=== PATIENT | female | born 1935 | race Two or more races ===

== ENCOUNTER 2019-05-21 13:01 | Inpatient (IN) | payer MEDICARE, MEDICAID ==
[~2019-05-21] VITALS: Ht 149.9 cm; Wt 38.1 kg
[2019-05-21] VITALS (9 sets, daily range): BP systolic 147–157; BP diastolic 76–94
--- NOTE | 2019-05-21 13:20 | NUR ---
PT ANGELA FROM HOME, C/O WEAKNESS, SENT BY PMD FOR LOW HGB. PT AAOX1, BREATHING EVENLY ON THE MONITOR, AMBULATING W WALKER. PT CHANGED INTO GOWN AND CONNECTED TO THE MONITOR,
[2019-05-21 14:13] LABS: BASOPHILS % (AUTO) 0.1 % (0.0-2.0); EOSINOPHILS % (AUTO) 0.7 % (0.0-6.0); LYMPHOCYTES # (AUTO) 3.2 /CMM (0.8-4.8); LYMPHOCYTES % (AUTO) 47.7 % (20.0-44.0); MEAN CORPUSCULAR HGB CONC 35 g/dl (31.0-36.0); MEAN CORPUSCULAR VOLUME 99 fL (82-100); MONOCYTES % (AUTO) 15.5 % (2.0-12.0); NEUTROPHILS # (AUTO) 2.4 /CMM (1.8-8.9); PLATELET COUNT (AUTO) 142 /CMM (150-450); WHITE BLOOD COUNT (AUTO) 6.7 K/uL (4.3-11.0)
[2019-05-21 14:30] LABS: APPEARANCE,URINE Clear (CLEAR); BILIRUBIN,URINE Negative (NEGATIVE); BLOOD, URINE Moderate Ery/uL (NEGATIVE); COLOR,URINE Yellow (YELLOW); KETONES,URINE Negative (NEGATIVE); LEUKOCYTE ESTERASE ,URINE Trace (NEGATIVE); NITRITE, URINE Negative (NEGATIVE); PROTEIN,URINE 100 mg/dl (NEGATIVE); UGLUCOSE Negative (NEGATIVE); UROBILINOGEN,URINE 0.2 EU/dL (0.2)
[2019-05-21] MEDS ORDERED: IV NS 0.9% 500 ML BAG IV ONE (14:30)
[2019-05-21 14:35] LABS: RED BLOOD CELL COUNT(AUTO) 1.84 MIL/uL (4.0-5.2)
[2019-05-21 14:36] LABS: HEMOGLOBIN 6.4 g/dL (11.5-14.8)
[2019-05-21 14:37] LABS: HEMATOCRIT 18 % (33-45)
[2019-05-21 14:39] LABS: ALANINE AMINOTRANSFERASE 29 U/L (12-78); ALBUMIN 2.3 g/dL (3.4-5.0); ALKALINE PHOSPHATASE 70 U/L (46-116); ASPARTATE AMINOTRANSFERASE 53 U/L (15-37); BILIRUBIN,DIRECT 0.1 mg/dL (0.0-0.2); BILIRUBIN,TOTAL 0.2 mg/dL (0.2-1.0); CALCIUM, SERUM 12.9 mg/dL (8.5-10.1); CARBON DIOXIDE 26 mmol/L (21-32); CHLORIDE 100 mmol/L (98-107); GLUCOSE 109 mg/dL (74-106); LIPASE 268 U/L (73-393); POTASSIUM 2.9 mmol/L (3.5-5.1); SODIUM SERUM 130 mmol/L (136-145); TOTAL PROTEIN, SERUM 13.1 g/dL (6.4-8.2); UREA NITROGEN, BLOOD 38 mg/dL (7-18)
[2019-05-21 14:46] LABS: BACTERIA,URINE None seen /HPF (None Seen); SQUAMOUS EPITHELIAL CELL,UR Few /HPF (None Seen); WBC,URINE 0-2 /HPF (0-3)
--- NOTE | 2019-05-21 14:54 | NUR ---
CALLED [facility]. SUPPLY CHAIN LOGISTICS MANAGER WAS PAGED.
[2019-05-21] MEDS ORDERED: PANTOPRAZOLE 40 MG VIAL ONE (14:59)
[2019-05-21] MEDS ORDERED: POTASSIUM CHLORIDE 20 MEQ TAB.PRT.SR PO ONE ×2 (14:59→15:00)
[2019-05-21] MEDS ORDERED: IV NS 0.9% 1,000 ML BAG IV ONE (15:00)
[2019-05-21] MEDS ORDERED: PANTOPRAZOLE 80 MG in IV NS 0.9% 500 ML IV ONE (15:00)
[2019-05-21] MEDS ORDERED: ATEN25TA PO (15:07)
[2019-05-21] MEDS ORDERED: LOSA50TA39 PO (15:07)
[2019-05-21] MEDS ORDERED: ONDA4TAB5 PO (15:08)
[2019-05-21 15:12] LABS: IRON, SERUM 168 ug/dl (50-175); TOTAL IRON BINDING CAPACITY 122 ug/dl (250-450)
[2019-05-21 15:18] LABS: MONOCYTES % (MANUAL) 15 % (0-11.0); NEUTROPHILS % (MANUAL) 40 (42-76)
[2019-05-21 15:21] LABS: LYMPHOCYTES % (MANUAL) 40 % (16-48); REACTIVE LYMPHOCYTES 5 % (0-0)
[2019-05-21 15:23] LABS: FERRITIN 585 ng/mL (8-388)
--- NOTE | 2019-05-21 15:30 | NUR ---
CALLED HOUSE SUP FOR TELE BED
--- NOTE | 2019-05-21 15:42 | NUR ---
PT GIVEN PROTONIX IVP LAC 18G PER DR. PT TOLERATED K+ TABLETS.
--- NOTE | 2019-05-21 16:07 | NUR ---
REPORT GIVEN TO BC JASMINE
--- NOTE | 2019-05-21 16:41 | NUR ---
PATIENT A/OX2-3 NO DISTRESS NOTED, TRANSFERRED TO ROOM 120-1 VIA ACLS PROTOCOL.
[2019-05-21] MEDS ORDERED: Z GUARD REMEDY 2 OZ OINT TP PRN (17:00)
[2019-05-21] MEDS ORDERED: MAG HYDROX/AL HYDROX/SIMETH 30 ML UDC PO PRN (17:00)
[2019-05-21] MEDS ORDERED: ACETAMINOPHEN 325 MG TABLET PO PRN (17:00)
[2019-05-21] MEDS ORDERED: MAGNESIUM HYDROXIDE 30 ML UDC PO PRN (17:00)
[2019-05-21] MEDS ORDERED: HYDROCODONE/APAP 5/325MG 1 EACH TABLET PO PRN (17:00)
--- NOTE | 2019-05-21 17:10 | NUR ---
RN OPENING NOTES PATIENT PRESENTED TO THE UNIT VIA GURNEY FROM THE ED. SHE IS AOX2, VERBAL, AND AMBULATORY WITH ASSIST. EYES ARE PERRLA. LUNGS SOUNDS CLEAR BILATERALLY, EVEN RISE AND FALL, NO COMPLAINT OF SOB. SKIN IS INTACT, NO WOUNDS NOTED UPON ASSESSMENT. SHE DENIES ANY PAIN OR DISCOMFORT AT THIS TIME. SON IS AT BEDSIDE. SHE AMBULATES WELL WITH WALKER. HEENT NORMAL. SAFETY MEASURES HAVE BEEN IMPLEMENTED, CALL LIGHT IS WITHIN REACH, BED IS IN LOWEST AND LOCKED POSITION, SIDE RAILS UP X2, WILL CONTINUE TO MONITOR FOR ANY CHANGES.
--- NOTE | 2019-05-21 19:00 | NUR ---
BLOOD TRANSFUSION OF ONE UNIT pRBC HAS STARTED, VITAL SIGNS ARE STABLE. WILL CONTINUE TO MONITOR
--- NOTE | 2019-05-21 19:15 | NUR ---
NO ADVERSE REACTION HAS OCCURRED AFTER INITIAL 15 MIN. NO SIGNIFICANT CHANGE IN VITAL SIGNS. PATIENT REPORTED NO ITCHINESS, SOB, OR FLANK PAIN.
--- NOTE | 2019-05-21 19:17 | NUR ---
RN CLOSING NOTES] PATIENT IS RESTING IN BED COMFORTABLY AT THIS TIME. SHE IS CURRENTLY RECEIVING ONE UNIT OF PACKED RBCS, NO ADVERSE REACTIONS NOTED AFTER INITIAL 15 MIN. PATIENT DENIES ANY PAIN OR DISCOMFORT AT THIS TIME. SAFETY MEASURES HAVE BEEN IMPLEMENTED, CALL LIGHT IS WITHIN REACH, BED IS IN LOWEST AND LOCKED POSITION, SIDE RAILS UP X2, PT HAS BEEN ENDORSED TO NIGHTSHIFT RN FOR CONTINUITY OF CARE.
--- NOTE | 2019-05-21 19:45 | NUR ---
URBAN REDEVELOPMENT SPECIALIST NOTES RECEIVED PT ON BED. ON TELE MONITOR SR. ON ROOM AIR NO RESPIRATORY DISTRESS NOTED. IV ACCESS ON LAC G18 WITH ONGOING BLOOD TRANSFUSION RUNNING @ 120CC/HR. HEAD OF BED ELEVATED. SIDE RAILS UP. CALL LIGHT WITHIN REACH. BED ALARM ON. BED IN LOW AND LOCKED POSITION. WILL MONITOR PT CLOSELY.
[2019-05-21] MEDS: CEFTRIAXONE 1 G in IV D5W 50 ML IV SCH ×2 (20:45→21:27)
[2019-05-21] MEDS: IV NS 0.9% 1,000 ML IV PRN (20:47)
--- NOTE | 2019-05-21 21:05 | NUR ---
MARINE PIPEFITTER HELPER NOTES PER CARLOS VALENTE TO GIVE ONE MORE UNIT OF PRBC. AND REPLACED POTASSIUM WITH 2 BAGS.
[2019-05-21] MEDS: POTASSIUM CL. PREMIX PERIPHER. 50 ML IV SCH ×2 (22:00→22:52)
--- NOTE | 2019-05-21 23:18 | NUR ---
AS400 OPERATOR NOTES BED ALARM ON. SIDE RAILS UP X3. BED IN LOW AND LOCKED POSITION. PT FALL RISK, WILL CONT CLOSE MONITORING.
--- NOTE | 2019-05-21 23:39 | NUR ---
CHECKER [employer] NOTES PT CONFUSED TRYING TO GET OUT OF BED. CALLED DAUGHTER. PER DAUGHTER BROTHER IS COMING. SIDE RAILS UP X3. BED IN LOW AND LOCKED POSITION. BED ALARM ON. CLOSE MONITORING ON GOING.
[2019-05-22] VITALS (7 sets, daily range): BP systolic 90–167; BP diastolic 57–89
--- NOTE | 2019-05-22 00:39 | NUR ---
SOIL FIELD TECHNICIAN NOTES BLOOD TRANSFUSION DONE. NO SIGNS OF RESPIRATORY DISTRESS OR ANY SIGN AND SYMPTOMS OF REACTION. WILL MONITOR PT CLOSELY.
--- NOTE | 2019-05-22 07:16 | NUR ---
NETWORK ARCHITECT NOTES NO ACUTE CHANGES NOTE DURING THE SHIFT. PT CONFUSE AND TRYING TO GET OUT OF BED. NO RESPIRATORY DISTRESS NOTED. NO ACTIVE BLEEDING NOTED. WILL ENDORSE TO THE AM NURSE FOR CONTINUITY OF CARE.
[2019-05-22 07:24] LABS: BASOPHILS % (AUTO) 0.2 % (0.0-2.0); EOSINOPHILS % (AUTO) 0.6 % (0.0-6.0); HEMATOCRIT 27 % (33-45); HEMOGLOBIN 9.6 g/dL (11.5-14.8); LYMPHOCYTES % (AUTO) 39.2 % (20.0-44.0); MEAN CORPUSCULAR HGB CONC 35 g/dl (31.0-36.0); MEAN CORPUSCULAR VOLUME 92 fL (82-100); MONOCYTES # (AUTO) 1.4 /CMM (0.1-1.30); MONOCYTES % (AUTO) 18.1 % (2.0-12.0); NEUTROPHILS # (AUTO) 3.2 /CMM (1.8-8.9); NEUTROPHILS % (AUTO) 41.9 % (43.0-81.0); PLATELET COUNT (AUTO) 127 /CMM (150-450); RED BLOOD CELL COUNT(AUTO) 2.98 MIL/uL (4.0-5.2); WHITE BLOOD COUNT (AUTO) 7.6 K/uL (4.3-11.0)
[2019-05-22 07:40] LABS: CALCIUM, SERUM 12.4 mg/dL (8.5-10.1); CARBON DIOXIDE 26 mmol/L (21-32); CHLORIDE 107 mmol/L (98-107); CREATININE 1.8 mg/dL (0.6-1.3); GLUCOSE 83 mg/dL (74-106); MAGNESIUM 1.5 mg/dL (1.8-2.4); PHOSPHORUS 2.7 mg/dL (2.5-4.9); POTASSIUM 3.3 mmol/L (3.5-5.1); SODIUM SERUM 136 mmol/L (136-145); UREA NITROGEN, BLOOD 33 mg/dL (7-18)
--- NOTE | 2019-05-22 07:53 | NUR ---
MARINA PORTER NOTES RECEIVED PT ON BED. ON TELE MONITOR SR. ON ROOM AIR NO RESPIRATORY DISTRESS NOTED. IV ACCESS ON LAC G18 WITH ONGOING IVF AT 75 ML PER HOUR ON RT HAND,. HEAD OF BED ELEVATED. SIDE RAILS UP. CALL LIGHT WITHIN REACH. BED ALARM ON. BED IN LOW AND LOCKED POSITION. WILL MONITOR PT CLOSELY ,BED ALARM IN PLACE
[2019-05-22] MEDS: PANTOPRAZOLE 40 MG VIAL IV SCH (09:07)
[2019-05-22] MEDS: ATENOLOL 25 MG TABLET PO SCH (09:07)
--- NOTE | 2019-05-22 09:20 | NUR ---
VISUAL DESIGNER NOTE DR HYDE AND DR GUZMAN GI AT BEDSIDE ,UA COLLECTED AND STOOL FOR OB COLLECTED
[2019-05-22 09:25] LABS: EOSINOPHILS % (MANUAL) 2 % (0-4); LYMPHOCYTES % (MANUAL) 44 % (16-48); MONOCYTES % (MANUAL) 11 % (0-11.0); MYELOCYTES % 1 % (0-0); NEUTROPHILS % (MANUAL) 42 (42-76)
[2019-05-22] MEDS ORDERED: POTASSIUM CHLORIDE 20 MEQ POWDER PACKET PO SCH (10:00)
[2019-05-22] MEDS ORDERED: Magnesium 1GM/D5W 100ML PREMIX 100 ML IV SCH (10:54)
--- NOTE | 2019-05-22 12:00 | NUR ---
REMOTE SENSING ANALYST NOTE HAVING LUNCH , FAMILY AT BEDSIDE
[2019-05-22 12:01] LABS: OCCULT BLOOD STOOL NEGATIVE (NEGATIVE)
[2019-05-22] MEDS ORDERED: POTASSIUM CHLORIDE 20 MEQ TAB.PRT.SR PO ONE (12:30)
[2019-05-22] MEDS: IV NS 0.9% 1,000 ML IV PRN ×2 (13:43→21:28)
--- NOTE | 2019-05-22 13:50 | NUR ---
FLEET DIRECTOR NOTE RENAL US DONE ORDERED
--- NOTE | 2019-05-22 15:49 | NUR ---
SEXOLOGIST NOTE ASSISTED TO BR , ABLE TO URINATE WELL ,KEEP CLEAN DRY ,CALL LIGHT WITHIN REACH
--- NOTE | 2019-05-22 18:25 | NUR ---
PERMIT COORDINATOR NOTE DAUGHTER AT BEDSIDE ,ASSISTED TO BR , ABLE TO URINATE WELL AND NOW HAVING DINNER , ALL NEEDS ATTENDED,CONT ON IVF ORDERED , BED IN LOWEST AND LOCKED POSITION, BED ALARM IN PLACE ,WILL MONITOR
[2019-05-22] MEDS: CEFTRIAXONE 1 G in IV D5W 50 ML IV SCH (21:28)
[2019-05-23] VITALS (8 sets, daily range): BP systolic 144–166; BP diastolic 60–82
--- NOTE | 2019-05-23 02:00 | NUR ---
ENDORSED REPORT TO SHANEL Sweeney RN FOR CONTINUITY OF CARE.
--- NOTE | 2019-05-23 02:45 | NUR ---
PATIENT TRANSPORTED TO IN NO ACUTE DISTRESS IN BED. PATIENT TOLERATED TRANSPORT WELL. PATIENT CARE TRANSFERRED TO SHANEL YANCEY FOR CONTINUITY OF CARE. SITTER AT BEDSIDE.
--- NOTE | 2019-05-23 02:50 | NUR ---
0250 PATIENT'S SON NICKI AT BEDSIDE AND UPDATED ON PATIENT CONDITION, MADE HIM AWARE ALSO THAT PATIENT WILL BE MOVED TO ROOM 327-1 AND AGREED. TRANSFERRED PATIENT TO ROOM 327-1 VIA BED ON ACLS PROTOCOL, ACCOMPANIED BY SON AND SITTER. NO DISTRESS NOTED.
--- NOTE | 2019-05-23 02:55 | NUR ---
RN NOTES RECEIVED PATIENT TRANSFER FROM [facility], ACCOMPANIED BY STEVEN ROSS AND BC BOWEN, NO APPARENT SIGNS OF DISTRESS, ALL NEEDS ATTENDED IV ACCESS INTACT AND PATENT, REPOSITIONED FOR COMFORT, WILL MONITOR ACCORDINGLY.
[2019-05-23 06:48] LABS: BASOPHILS % (AUTO) 0.3 % (0.0-2.0); EOSINOPHILS % (AUTO) 1.1 % (0.0-6.0); HEMATOCRIT 26 % (33-45); LYMPHOCYTES % (AUTO) 38.9 % (20.0-44.0); MEAN CORPUSCULAR HGB CONC 35 g/dl (31.0-36.0); MEAN CORPUSCULAR VOLUME 92 fL (82-100); MONOCYTES # (AUTO) 0.6 /CMM (0.1-1.30); MONOCYTES % (AUTO) 11.2 % (2.0-12.0); NEUTROPHILS # (AUTO) 2.5 /CMM (1.8-8.9); NEUTROPHILS % (AUTO) 48.5 % (43.0-81.0); PLATELET COUNT (AUTO) 104 /CMM (150-450); RED BLOOD CELL COUNT(AUTO) 2.81 MIL/uL (4.0-5.2); WHITE BLOOD COUNT (AUTO) 5.2 K/uL (4.3-11.0)
--- NOTE | 2019-05-23 06:53 | NUR ---
RN NOTES ALL NEEDS ATTENDED AND MET, SITTER AT BEDSIDE, NO SIGNS OF DISTRESS ABLE TO REST AND SLEPT AT INTERVALS, SAFETY PRECAUTION IN PLACE, WILL ENDORSE TO AM NURSE FOR CONTINUITY OF CARE. CALLED AND SPOKE TO BRUCE OF LAB, NO URINE SPECIMEN YET, WILL ENDORSE TO AM NURSE FOR CONTINUITY OF CARE.
[2019-05-23 07:09] LABS: ALANINE AMINOTRANSFERASE 24 U/L (12-78); ALBUMIN 2.1 g/dL (3.4-5.0); ALKALINE PHOSPHATASE 68 U/L (46-116); ASPARTATE AMINOTRANSFERASE 79 U/L (15-37); BILIRUBIN,TOTAL 0.3 mg/dL (0.2-1.0); CARBON DIOXIDE 23 mmol/L (21-32); CHLORIDE 108 mmol/L (98-107); CREATININE 1.6 mg/dL (0.6-1.3); GLUCOSE 88 mg/dL (74-106); MAGNESIUM 1.5 mg/dL (1.8-2.4); PHOSPHORUS 2.6 mg/dL (2.5-4.9); POTASSIUM 2.9 mmol/L (3.5-5.1); SODIUM SERUM 136 mmol/L (136-145); TOTAL PROTEIN, SERUM 11.8 g/dL (6.4-8.2); UREA NITROGEN, BLOOD 22 mg/dL (7-18)
[2019-05-23 07:11] LABS: CREATINE KINASE, TOTAL 366 U/L (26-192)
--- NOTE | 2019-05-23 07:45 | NUR ---
FACILITIES PROJECT MANAGER NOTES PATIENT RESTING IN BED, SITTER AT BEDSIDE. PATIENT IN NO RESPIRATORY DISTRESS, NO S/S OF PAIN AT THIS TIME. SKIN WARM TO TOUCH. IV NS INFUSING AT 75ML/HR ON THE RFA #20G, INTACT AND PATENT, NO REDNESS, NO INFILTRATION. PATIENT'S NEEDS ATTENDED. BED ON LOWEST LOCKED POSITION, CALL LIGHT WITHIN REACH. WILL CONTINUE TO MONITOR.
--- NOTE | 2019-05-23 08:15 | NUR ---
ATHLETIC TRAINER NOTES PATIENT'S SECTION PLOTTER OPERATOR ON READING SR 86, POTASSIUM AND MAGNESIUM REPLACEMENT ORDERED PER MD, CARRIED OUT.
[2019-05-23] MEDS ORDERED: POTASSIUM CHLORIDE 20 MEQ TAB.PRT.SR PO ONE (08:30)
[2019-05-23] MEDS: Magnesium 1GM/D5W 100ML PREMIX 100 ML IV SCH ×2 (08:35→09:34)
[2019-05-23] MEDS: ATENOLOL 25 MG TABLET PO SCH (09:06)
[2019-05-23] MEDS: PANTOPRAZOLE 40 MG VIAL IV SCH (09:31)
[2019-05-23] MEDS ORDERED: hydrALAZINE HCL 25 MG TABLET PO PRN (11:00)
[2019-05-23] MEDS: POTASSIUM CL. PREMIX PERIPHER. 50 ML IV SCH ×4 (11:07→14:44)
[2019-05-23 11:46] LABS: CREATININE, URINE < 13.0 MG/DL (30.0-125.0); URINE SODIUM, RANDOM 115 mmol/l (40-220); URINE TOTAL PROTEIN 100.6 mg/dL (0-11.9)
[2019-05-23 12:01] LABS: APPEARANCE,URINE Clear (CLEAR); BILIRUBIN,URINE Negative (NEGATIVE); BLOOD, URINE Small Ery/uL (NEGATIVE); COLOR,URINE Yellow (YELLOW); KETONES,URINE Negative (NEGATIVE); LEUKOCYTE ESTERASE ,URINE Negative (NEGATIVE); NITRITE, URINE Negative (NEGATIVE); PROTEIN,URINE 30 mg/dl (NEGATIVE); UGLUCOSE Negative (NEGATIVE); UROBILINOGEN,URINE 0.2 EU/dL (0.2)
[2019-05-23 13:17] LABS: BACTERIA,URINE None seen /HPF (None Seen); EOSINOPHIL,URINE None Seen; RBC,URINE 0-2 /HPF (0-2); SQUAMOUS EPITHELIAL CELL,UR Few /HPF (None Seen); WBC,URINE NONE SEEN /HPF (0-3)
--- NOTE | 2019-05-23 19:33 | NUR ---
RN NOTES RECEIVED PATIENT RESTING COMFORTABLY, DAUGHTER IS AT BEDSIDE, PATIENT IN NO RESPIRATORY DISTRESS, NO S/S OF PAIN AT THIS TIME. SKIN WARM TO TOUCH. IV NS INFUSING AT 75ML/HR ON THE RFA #20G, INTACT AND PATENT, NO REDNESS, NO INFILTRATION. PATIENT'S NEEDS ANTICIPATED. BED ON LOWEST LOCKED POSITION, CALL LIGHT WITHIN REACH. WILL CONTINUE TO MONITOR ACCORDINGLY.
[2019-05-23] MEDS ORDERED: PAMIDRONATE 90 MG in IV NS 0.9% 500 ML IV ONE (20:00)
[2019-05-23] MEDS: CEFTRIAXONE 1 G in IV D5W 50 ML IV SCH (21:07)
[2019-05-24 00:09] VITALS: BP 137/79
[2019-05-24 04:36] VITALS: BP 137/79
--- NOTE | 2019-05-24 06:12 | NUR ---
RN NOTES PATIENT ABLE TO REST AND SLEPT WITH SHORT INTERVALS, IN NO RESPIRATORY DISTRESS, NO S/S OF PAIN AT THIS TIME. SKIN WARM TO TOUCH. IV NS INFUSING AT 75ML/HR ON THE RFA #20G, INTACT AND PATENT, NO REDNESS, NO INFILTRATION. PATIENT'S NEEDS ANTICIPATED. SAFETY MEASURES IN PLACE, MULTIPLE EPISODES OF GETTING OUT OF BED NOTED, BED ALARM EMPHASIZED, BED ON LOWEST LOCKED POSITION, CALL LIGHT WITHIN REACH. ROOM ASSIGNMENT IS CLOSE TO NURSING STATION, MONITORED THROUGHOUT THE SHIFT, WILL ENDORSE TO AM NURSE FOR CONTINUITY OF CARE.
[2019-05-24] MEDS: IV NS 0.9% 1,000 ML IV PRN (06:58)
--- NOTE | 2019-05-24 07:35 | NUR ---
M/S RN NOTES PATIENT RESTING, LYING IN BED. NO RESPIRATORY DISTRES NOTED. NO C/O PAIN AT THIS TIME. IV OF NS INFUSING AT 75ML/HR ON THE RFA #20G, INTACT AND PATENT, NO REDNESS, NO INFILTRATION. PATIENT'S NEEDS ATTENDED. BED ON LOWEST LOCKED POSITION, CALL LIGHT WITHIN REACH, WILL CONTINUE TO MONITOR.
[2019-05-24 07:45] LABS: BASOPHILS % (AUTO) 0.3 % (0.0-2.0); EOSINOPHILS % (AUTO) 1.2 % (0.0-6.0); HEMATOCRIT 27 % (33-45); HEMOGLOBIN 9.2 g/dL (11.5-14.8); LYMPHOCYTES # (AUTO) 2.2 /CMM (0.8-4.8); LYMPHOCYTES % (AUTO) 42.6 % (20.0-44.0); MEAN CORPUSCULAR HGB CONC 35 g/dl (31.0-36.0); MEAN CORPUSCULAR VOLUME 92 fL (82-100); MONOCYTES % (AUTO) 18.9 % (2.0-12.0); NEUTROPHILS # (AUTO) 1.9 /CMM (1.8-8.9); PLATELET COUNT (AUTO) 99 /CMM (150-450); RED BLOOD CELL COUNT(AUTO) 2.88 MIL/uL (4.0-5.2); WHITE BLOOD COUNT (AUTO) 5.1 K/uL (4.3-11.0)
[2019-05-24 07:58] LABS: CALCIUM, SERUM 12.8 mg/dL (8.5-10.1); CARBON DIOXIDE 24 mmol/L (21-32); CHLORIDE 105 mmol/L (98-107); CREATININE 1.7 mg/dL (0.6-1.3); GLUCOSE 95 mg/dL (74-106); PHOSPHORUS 2.9 mg/dL (2.5-4.9); POTASSIUM 3.5 mmol/L (3.5-5.1); SODIUM SERUM 133 mmol/L (136-145); UREA NITROGEN, BLOOD 19 mg/dL (7-18)
[2019-05-24 07:59] LABS: ALBUMIN 2.1 g/dL (3.4-5.0); BILIRUBIN,DIRECT 0.1 mg/dL (0.0-0.2); BILIRUBIN,TOTAL 0.3 mg/dL (0.2-1.0); TOTAL PROTEIN, SERUM 11.9 g/dL (6.4-8.2)
[2019-05-24 08:00] VITALS: BP 127/67
[2019-05-24 08:50] LABS: LYMPHOCYTES % (MANUAL) 51 % (16-48); MONOCYTES % (MANUAL) 11 % (0-11.0); MYELOCYTES % 1 % (0-0); NEUTROPHILS % (MANUAL) 37 (42-76)
[2019-05-24] MEDS: PANTOPRAZOLE 40 MG VIAL IV SCH (08:57)
[2019-05-24] MEDS: ATENOLOL 25 MG TABLET PO SCH (08:58)
[2019-05-24 15:50] VITALS: BP 149/86
[2019-05-24 16:00] VITALS: BP 149/86
--- NOTE | 2019-05-24 16:15 | NUR ---
M/S RN NOTES PATIENT WALKED AROUND THE UNIT WITH A WALKER WITH PATIENT'S DAUGHTERS ON EACH SIDE. PATIENT TOLERATED IT WELL.
--- NOTE | 2019-05-24 18:57 | NUR ---
M/S RN NOTES PATIENT RESTING, LYING IN BED. PATIENT IN NO RESPIRATORY DISTRESS, NO C/O PAIN AT THIS TIME. SKIN WARM TO TOUCH. IV NS INFUSING AT 75ML/HR ON THE RFA #20G, INTACT AND PATENT. PATIENT'S NEEDS ATTENDED. BED ON LOWEST LOCKED POSITION, CALL LIGHT WITHIN REACH. WILL ENDORSE TO ONCOMING NURSE.
--- NOTE | 2019-05-24 19:30 | NUR ---
CHANGE OF SHIFT REPORT Patient in bed, Tuvaluan speaking, son Yunior at bedside assist with translation. Patient appears calm, A/O x1 to self only, denies pain, tolerating RA. Fall precaution maintained.
[2019-05-24 20:00] VITALS: BP 160/79
[2019-05-24] MEDS ORDERED: PAMIDRONATE 30 MG/VIAL VIAL IV ONE (21:28)
--- NOTE | 2019-05-25 06:26 | NUR ---
END OF SHIFT REPORT Patient in bed, stable oxygen saturation on RA. IVF infusing. Slept well, no acute events overnight. Hourly rounds, ambulates with FWW, standby assist. Voiding without difficulty, no active bleeding, denies pain. Fall precaution maintained.
[2019-05-25] MEDS: IV NS 0.9% 1,000 ML IV PRN (06:49)
[2019-05-25 08:00] VITALS: BP 160/83
[2019-05-25] MEDS: ATENOLOL 25 MG TABLET PO SCH (08:47)
[2019-05-25] MEDS: PANTOPRAZOLE 40 MG VIAL IV SCH (08:47)
[2019-05-25] MEDS: IV 1/2NS 1000 ML 1,000 ML IV PRN ×2 (15:24→23:07)
[2019-05-25 15:41] LABS: BASOPHILS # (AUTO) 0.2 /CMM (0.0-0.2); EOSINOPHILS % (AUTO) 2.7 % (0.0-6.0); HEMATOCRIT 25 % (33-45); HEMOGLOBIN 8.4 g/dL (11.5-14.8); LYMPHOCYTES # (AUTO) 1.7 /CMM (0.8-4.8); LYMPHOCYTES % (AUTO) 36.6 % (20.0-44.0); MEAN CORPUSCULAR HGB CONC 34 g/dl (31.0-36.0); MEAN CORPUSCULAR VOLUME 92 fL (82-100); MONOCYTES # (AUTO) 0.7 /CMM (0.1-1.30); MONOCYTES % (AUTO) 14.3 % (2.0-12.0); NEUTROPHILS # (AUTO) 1.9 /CMM (1.8-8.9); NEUTROPHILS % (AUTO) 41.1 % (43.0-81.0); RED BLOOD CELL COUNT(AUTO) 2.67 MIL/uL (4.0-5.2); WHITE BLOOD COUNT (AUTO) 4.6 K/uL (4.3-11.0)
[2019-05-25 15:57] LABS: ALANINE AMINOTRANSFERASE 26 U/L (12-78); ALKALINE PHOSPHATASE 63 U/L (46-116); ASPARTATE AMINOTRANSFERASE 61 U/L (15-37); BILIRUBIN,TOTAL 0.3 mg/dL (0.2-1.0); CALCIUM, SERUM 11.4 mg/dL (8.5-10.1); CARBON DIOXIDE 23 mmol/L (21-32); CHLORIDE 105 mmol/L (98-107); GLUCOSE 96 mg/dL (74-106); MAGNESIUM 1.7 mg/dL (1.8-2.4); PHOSPHORUS 3.3 mg/dL (2.5-4.9); POTASSIUM 3.1 mmol/L (3.5-5.1); SODIUM SERUM 132 mmol/L (136-145); UREA NITROGEN, BLOOD 22 mg/dL (7-18)
[2019-05-25 16:00] VITALS: BP 134/72
[2019-05-25 16:10] LABS: BASOPHILS % (AUTO) 5.3 % (0.0-2.0)
[2019-05-25] MEDS ORDERED: LIDOCAINE 1% INJ 50 ML MDV IJ ONE (16:30)
[2019-05-25 19:11] LABS: EOSINOPHILS % (MANUAL) 1 % (0-4); LYMPHOCYTES % (MANUAL) 47 % (16-48); MONOCYTES % (MANUAL) 8 % (0-11.0); NEUTROPHILS % (MANUAL) 43 (42-76); REACTIVE LYMPHOCYTES 1 % (0-0)
[2019-05-25 19:12] LABS: PLATELET COUNT (AUTO) 85 /CMM (150-450)
[2019-05-25] MEDS ORDERED: POTASSIUM CHLORIDE 20 MEQ TAB.PRT.SR PO ONE (19:30)
--- NOTE | 2019-05-25 19:45 | NUR ---
MS RN OPENING NOTES RECEIVED PATIENT FROM MORNING SHIFT, ALERT AND ORIENTED X 1, UGANDAN/YI SPEAKING WITH FAMILY ON BEDSIDE. VERBALLY RESPONSIVE AND ABLE TO FOLLOW DIRECTIONS. BREATHING REGULAR AND UNLABORED ON ROOM AIR. RIGHT FOREARM G2O IV LINE INTACT AND PATENT INFUSING WELL WITH NO BLEEDING OR S/S OF INFECTION/INFILTRATION OBSERVED. ASSISTED BRP WITH WALKER WITH CLEAR YELLOW URINE. NO COMPLAINTS OF PAIN/DISCOMFORT REPORTED OF THE TIME. BED LOW AND LOCKED ON SEMI FOWLERS POSITION. WILL CONTINUE TO MONITOR.
[2019-05-25 20:00] VITALS: BP 160/75
--- NOTE | 2019-05-25 20:00 | NUR ---
MS RN NOTES MONITORED FOR S/S OF LOW POTASSIUM AND MAGNESIUM WITH ON-GOING REPLACEMENTS STARTED.
[2019-05-25] MEDS: MAGNESIUM OXIDE 400 MG TABLET PO SCH ×2 (20:12→21:42)
[2019-05-26] MEDS: IV 1/2NS 1000 ML 1,000 ML IV PRN ×2 (05:43→22:49)
[2019-05-26 06:06] LABS: *SPE A/G RATIO 0.4 (0.7-1.7); *SPE ALBUMIN 3.4 g/dL (2.9-4.4); *SPE ALPHA-1-GLOBULIN 0.4 g/dL (0.0-0.4); *SPE GLOBULIN, TOTAL 8.4 g/dL (2.2-3.9); *SPE M-SPIKE 5.9 g/dL (Not Observed); *SPEGAMMA GLOBULIN 6.1 g/dL (0.4-1.8)
--- NOTE | 2019-05-26 06:26 | NUR ---
MS RN CLOSING NOTES PATIENT IN BED ALERT AND ORIENTED X 1, ENGLISH/KISWAHILI SPEAKING. VERBALLY RESPONSIVE AND ABLE TO FOLLOW DIRECTIONS. BREATHING REGULAR AND UNLABORED ON ROOM AIR. RIGHT FOREARM G20 IV LINE INTACT AND PATENT INFUSING WELL WITH NO BLEEDING OR S/S OF INFECTION/INFILTRATION OBSERVED. BRP WITH ASSIST, URINE OUTPUT OF 650cc NOTED IN THE SHIFT. NO COMPLAINTS OF PAIN/DISCOMFORT REPORTED OF THE TIME. BED LOW AND LOCKED ON SEMI FOWLERS POSITION. WILL ENDORSE TO MORNING SHIFT FOR ELVIRA.
[2019-05-26 06:57] LABS: BASOPHILS % (AUTO) 0.3 % (0.0-2.0); EOSINOPHILS % (AUTO) 1.3 % (0.0-6.0); HEMATOCRIT 26 % (33-45); LYMPHOCYTES # (AUTO) 2.1 /CMM (0.8-4.8); LYMPHOCYTES % (AUTO) 46.6 % (20.0-44.0); MEAN CORPUSCULAR HGB CONC 34 g/dl (31.0-36.0); MEAN CORPUSCULAR VOLUME 92 fL (82-100); MONOCYTES # (AUTO) 0.9 /CMM (0.1-1.30); MONOCYTES % (AUTO) 18.7 % (2.0-12.0); NEUTROPHILS # (AUTO) 1.5 /CMM (1.8-8.9); NEUTROPHILS % (AUTO) 33.1 % (43.0-81.0); PLATELET COUNT (AUTO) 88 /CMM (150-450); RED BLOOD CELL COUNT(AUTO) 2.86 MIL/uL (4.0-5.2); WHITE BLOOD COUNT (AUTO) 4.5 K/uL (4.3-11.0)
[2019-05-26 07:10] LABS: CALCIUM, SERUM 10.3 mg/dL (8.5-10.1); CARBON DIOXIDE 24 mmol/L (21-32); CHLORIDE 104 mmol/L (98-107); CREATININE 1.7 mg/dL (0.6-1.3); GLUCOSE 81 mg/dL (74-106); MAGNESIUM 1.5 mg/dL (1.8-2.4); PHOSPHORUS 2.3 mg/dL (2.5-4.9); POTASSIUM 2.9 mmol/L (3.5-5.1); SODIUM SERUM 132 mmol/L (136-145); UREA NITROGEN, BLOOD 21 mg/dL (7-18)
--- NOTE | 2019-05-26 07:31 | NUR ---
MS RN OPENING NOTES RECEIVED PATIENT AWAKE IN BED IN NO ACUTE SIGNS OF DISTRESS. HOB ELEVATED. A/O X1-2. KAZAKH/SWAZI SPEAKING, DENIES PAIN OR DISCOMFORTS AT THIS TIME. ON ROOM AIR, BREATHING EVEN AND UNLABORED. IV ACCESS ON RFA INTACT AND PATENT, IVF OF 1/2 NS @ 150ML/HR INFUSING WELL, NO S/S OF INFILTRATIONS NOTED. SAFETY MEASURES IN PLACE. BED IN LOW LOCKED POSITION WITH SR UP X2. CALL LIGHT WITHIN REACH. WILL CONTINUE TO MONITOR PT ACCORDINGLY.
[2019-05-26 08:00] VITALS: BP 159/89
[2019-05-26 08:10] LABS: BAND % (MANUAL) 3 % (0.0-5.0); EOSINOPHILS % (MANUAL) 3 % (0-4); LYMPHOCYTES % (MANUAL) 46 % (16-48); MONOCYTES % (MANUAL) 12 % (0-11.0); NEUTROPHILS % (MANUAL) 36 (42-76)
[2019-05-26] MEDS: PANTOPRAZOLE 40 MG TABLET.DR PO SCH (08:15)
[2019-05-26] MEDS: ATENOLOL 25 MG TABLET PO SCH (08:27)
[2019-05-26] MEDS ORDERED: NEUTRA PHOS 1 POWD.PACKET NG ONE (09:00)
[2019-05-26] MEDS ORDERED: Magnesium 1GM/D5W 100ML PREMIX 100 ML IV SCH (09:30)
[2019-05-26] MEDS: POTASSIUM CHLORIDE 10 MEQ TABLET.SA PO SCH ×5 (09:33→13:58)
--- NOTE | 2019-05-26 12:54 | NUR ---
RN NOTES PT WITH LOW MAGNESIUM 1.5 TODAY. ADMINISTERED MG 1G/100 ML D5W IVPB. WILL CONTINUE TO MONITOR.
[2019-05-26] MEDS: POTASSIUM CL. PREMIX PERIPHER. 50 ML IV SCH ×3 (13:42→15:48)
[2019-05-26] MEDS ORDERED: ENSURE ENLIVE CHOC 237 ML CAN PO SCH (15:00)
--- NOTE | 2019-05-26 15:49 | NUR ---
RN NOTES PT NOTED WITH LOW POTASSIUM 2.9 TODAY. ADMINISTERED KDUR 10MEQ PO TAB X 5 DOSES AND ADDITIONAL 10MEQ IVP X 3DOSES WITH TOTAL DOSE OF POTASSIUM 80MEQ. WILL CONTINUE TO MONITOR.
[2019-05-26 16:00] VITALS: BP 142/74
[2019-05-26] MEDS: ENSURE ENLIVE CHOC 237 ML CAN PO SCH (17:36)
[2019-05-26] MEDS ORDERED: LIDOCAINE 1% INJ 50 ML MDV IJ STA (19:06)
--- NOTE | 2019-05-26 19:35 | NUR ---
MS RN CLOSING NOTES PATIENT IN BED AWAKE, A/O X2. SOMALI/COSTA RICAN SPEAKING. FAMILY AT BEDSIDE. S/P BONE MARROW BIOPSY ON RIGHT LOWER BACK BY DR FERNANDEZ LAWSON. SPECIMENS COLLECTED AND SENT TO LAB BY ELEMENTARY ASSISTANT TEACHER JOSE. APPLIED DRESSING TO SITES, WILL MONITOR FOR BLEEDING. ON ROOM AIR, TOLERATING WELL WITH NO SOB NOTED. IV ACCESS ON RFA INTACT AND PATENT, IVF OF 1/2 NS @ 150ML/HR INFUSING WELL, NO S/S OF INFILTRATIONS NOTED. ALL NEEDS AND CARE PROVIDED WELL. SAFETY MEASURES KEPT IN PLACE. BED IN LOW LOCKED POSITION WITH SR UP X2. CALL LIGHT WITHIN REACH. ENDORSED TO ELEMENTARY ASSISTANT TEACHER NURSE JOSE FOR ELVIRA
--- NOTE | 2019-05-26 19:45 | NUR ---
MS RN OPENING NOTES RECEIVED PATIENT FROM MORNING SHIFT, ALERT AND ORIENTED X 1, MARTINIQUAIS/ECUADOREAN SPEAKING WITH FAMILY ON BEDSIDE. VERBALLY RESPONSIVE AND ABLE TO FOLLOW DIRECTIONS. BREATHING REGULAR AND UNLABORED ON ROOM AIR. S/P BONE MARROW ASPIRATION DONE BY . SPECIMEN COLLECTED AND SENT TO PATHOLOGY DEPARTMENT. RIGHT FOREARM G20 IV LINE INTACT AND PATENT INFUSING WELL WITH NO BLEEDING OR S/S OF INFECTION/INFILTRATION OBSERVED. KEPT COMFORTABLE ON SIDE LYING POSITION. COMPLAINED OF A LITTLE PAIN/DISCOMFORT ON ASPIRATED AREA. PAIN MEDICATION OFFERED BUT DECLINED. BED LOW AND LOCKED. WILL CONTINUE TO MONITOR.
[2019-05-26 19:48] LABS: BASOPHILS % (AUTO) 0.3 % (0.0-2.0); HEMATOCRIT 26 % (33-45); HEMOGLOBIN 9.2 g/dL (11.5-14.8); LYMPHOCYTES # (AUTO) 2.5 /CMM (0.8-4.8); LYMPHOCYTES % (AUTO) 44.3 % (20.0-44.0); MEAN CORPUSCULAR HGB CONC 35 g/dl (31.0-36.0); MEAN CORPUSCULAR VOLUME 93 fL (82-100); MONOCYTES # (AUTO) 0.8 /CMM (0.1-1.30); MONOCYTES % (AUTO) 13.2 % (2.0-12.0); NEUTROPHILS # (AUTO) 2.4 /CMM (1.8-8.9); NEUTROPHILS % (AUTO) 41.2 % (43.0-81.0); PLATELET COUNT (AUTO) 94 /CMM (150-450); RED BLOOD CELL COUNT(AUTO) 2.84 MIL/uL (4.0-5.2); WHITE BLOOD COUNT (AUTO) 5.8 K/uL (4.3-11.0)
[2019-05-26 20:00] VITALS: BP 124/67
[2019-05-26] MEDS: MAGNESIUM OXIDE 400 MG TABLET PO SCH (21:02)
--- NOTE | 2019-05-26 21:30 | NUR ---
MS RN NOTES COMPLAINED OF 7/10 PAIN ON POST BONE MARROW BIOPSY SITE. NORCO 5/325 GIVEN BY MOUTH. NON-PHARMACOLOGICAL INTERVENTIONS DONE. VITAL SIGNS WNL. NO ACTIVE BLEEDING NOTED ON SITE. WILL CONTINUE TO MONITOR.
[2019-05-26 21:56] LABS: BAND % (MANUAL) 1 % (0.0-5.0); LYMPHOCYTES % (MANUAL) 58 % (16-48); MONOCYTES % (MANUAL) 5 % (0-11.0); NEUTROPHILS % (MANUAL) 36 (42-76)
[2019-05-27] MEDS: IV 1/2NS 1000 ML 1,000 ML IV PRN ×3 (05:35→22:45)
--- NOTE | 2019-05-27 06:29 | NUR ---
MS RN CLOSING NOTES PATIENT IN BED ALERT AND ORIENTED X 1, DUTCH/KHMER SPEAKING. VERBALLY RESPONSIVE AND ABLE TO FOLLOW DIRECTIONS. BREATHING REGULAR AND UNLABORED ON ROOM AIR. RIGHT FOREARM G20 IV LINE INTACT AND PATENT INFUSING WELL WITH NO BLEEDING OR S/S OF INFECTION/INFILTRATION OBSERVED. BRP WITH ASSIST, URINE OUTPUT OF 1000cc NOTED IN THE SHIFT. NO COMPLAINTS OF PAIN/DISCOMFORT REPORTED OF THE TIME. NO ACTIVE BLEEDING OR S/S OF INFECTION SEEN ON POST BONE MARROW BIOPSY SITE. DRESSING CLEAN, DRY AND INTACT. BED LOW AND LOCKED ON SEMI FOWLERS POSITION. WILL ENDORSE TO MORNING SHIFT FOR ELVIRA.
--- NOTE | 2019-05-27 07:26 | NUR ---
MS RN OPENING NOTES RECEIVED PATIENT AWAKE IN BED IN NO ACUTE SIGNS OF DISTRESS. HOB ELEVATED. SON NICKI @ BEDSIDE. A/O X1-2. LATVIAN/ST [place]CI[place] SPEAKING, DENIES PAIN OR DISCOMFORTS AT THIS TIME. ON ROOM AIR, BREATHING EVEN AND UNLABORED. IV ACCESS ON RFA INTACT AND PATENT, IVF OF 1/2 NS @ 150ML/HR INFUSING WELL, NO S/S OF INFILTRATIONS NOTED. SAFETY MEASURES IN PLACE. BED IN LOW LOCKED POSITION WITH SR UP X2. CALL LIGHT WITHIN REACH. WILL CONTINUE TO MONITOR.
[2019-05-27 08:00] VITALS: BP 135/72
[2019-05-27] MEDS: PANTOPRAZOLE 40 MG TABLET.DR PO SCH (08:06)
[2019-05-27] MEDS: ATENOLOL 25 MG TABLET PO SCH (08:07)
[2019-05-27] MEDS: ENSURE ENLIVE CHOC 237 ML CAN PO SCH ×3 (08:07→17:34)
[2019-05-27] MEDS: ONDANSETRON HCL/PF 4 MG/2 ML VIAL IVP PRN (10:50)
--- NOTE | 2019-05-27 10:54 | NUR ---
RN NOTES PATIENT COMPLAINED OF NAUSEA TRANSLATED BY FAMILY. PRN ZOFRAN 4MG/2MG IVP ADMINISTERED AT 1050. WILL CONTINUE TO MONITOR AND REASSESS PT.
[2019-05-27 11:21] LABS: BASOPHILS % (AUTO) 0.2 % (0.0-2.0); EOSINOPHILS % (AUTO) 0.7 % (0.0-6.0); HEMATOCRIT 22 % (33-45); HEMOGLOBIN 7.7 g/dL (11.5-14.8); LYMPHOCYTES # (AUTO) 2.3 /CMM (0.8-4.8); LYMPHOCYTES % (AUTO) 44.7 % (20.0-44.0); MEAN CORPUSCULAR HGB CONC 36 g/dl (31.0-36.0); MEAN CORPUSCULAR VOLUME 92 fL (82-100); MONOCYTES # (AUTO) 0.9 /CMM (0.1-1.30); MONOCYTES % (AUTO) 17.6 % (2.0-12.0); NEUTROPHILS # (AUTO) 1.9 /CMM (1.8-8.9); NEUTROPHILS % (AUTO) 36.8 % (43.0-81.0); PLATELET COUNT (AUTO) 80 /CMM (150-450); RED BLOOD CELL COUNT(AUTO) 2.36 MIL/uL (4.0-5.2); WHITE BLOOD COUNT (AUTO) 5.1 K/uL (4.3-11.0)
[2019-05-27 12:26] LABS: ALBUMIN 1.8 g/dL (3.4-5.0); ASPARTATE AMINOTRANSFERASE 72 U/L (15-37); BILIRUBIN,TOTAL 0.2 mg/dL (0.2-1.0); CALCIUM, SERUM 8.4 mg/dL (8.5-10.1); CARBON DIOXIDE 22 mmol/L (21-32); CHLORIDE 105 mmol/L (98-107); CREATININE 1.6 mg/dL (0.6-1.3); GLUCOSE 102 mg/dL (74-106); MAGNESIUM 1.6 mg/dL (1.8-2.4); PHOSPHORUS 1.9 mg/dL (2.5-4.9); POTASSIUM 3.5 mmol/L (3.5-5.1); SODIUM SERUM 130 mmol/L (136-145); TOTAL PROTEIN, SERUM 10.1 g/dL (6.4-8.2); UREA NITROGEN, BLOOD 22 mg/dL (7-18)
[2019-05-27 13:07] LABS: BETA-2 MICROGLOBULIN, SERUM 12.3 mg/L (0.6-2.4)
[2019-05-27] MEDS ORDERED: Magnesium 1GM/D5W 100ML PREMIX 100 ML IV SCH (13:30)
[2019-05-27 13:43] LABS: ALANINE AMINOTRANSFERASE 31 U/L (12-78)
[2019-05-27 13:44] LABS: ALKALINE PHOSPHATASE 59 U/L (46-116)
--- NOTE | 2019-05-27 14:12 | NUR ---
RN NOTES PT WITH LOW MAGNESIUM 1.6 TODAY. ADMINISTERED MG 1G/100 ML D5W IVPB. WILL CONTINUE TO MONITOR.
[2019-05-27 14:24] LABS: LYMPHOCYTES % (MANUAL) 46 % (16-48); MONOCYTES % (MANUAL) 5 % (0-11.0); NEUTROPHILS % (MANUAL) 49 (42-76)
[2019-05-27 16:00] VITALS: BP 121/59
--- NOTE | 2019-05-27 18:41 | NUR ---
MS RN CLOSING NOTES PATIENT IN BED AWAKE AND WATCHING TV. NIECE AT BEDSIDE AT THIS TIME. A/O X2. GAMBIAN/DOMINICAN SPEAKING. ON ROOM AIR, TOLERATING WELL WITH NO SOB NOTED. IV ACCESS ON RFA INTACT AND PATENT, IVF OF 1/2 NS @ 150ML/HR INFUSING WELL, NO S/S OF INFILTRATIONS NOTED. ALL NEEDS AND CARE PROVIDED WELL. SAFETY MEASURES KEPT IN PLACE. BED IN LOW LOCKED POSITION WITH SR UP X2. CALL LIGHT WITHIN REACH. WILL ENDORSE TO PIPE TESTER NURSE FOR ELVIRA
--- NOTE | 2019-05-27 19:05 | NUR ---
MS RN OPENING NOTES RECEIVED PATIENT IN BED, AWAKE AND WATCHING TV. DAUGHTER AT BEDSIDE AT THIS TIME. A/O X2, ENGLISH/ARMENIAN SPEAKING. BREATHING EVEN AND UNLABORED. NOT IN ANY DISTRESS, ON ROOM AIR, TOLERATING WELL. PERIPHERAL IV ON RFA INTACT AND PATENT, IVF OF 1/2 NS INFUSING AT 150ML/HR INFUSING. SAFETY MEASURES IN PLACE. CALL LIGHT WITHIN REACH. BED IN LOW LOCKED POSITION WITH SIDE RAILS UP X2. WILL CONTINUE TO MONITOR ACCORDINGLY
[2019-05-27 19:55] VITALS: BP 115/60
[2019-05-27] MEDS: MAGNESIUM OXIDE 400 MG TABLET PO SCH (21:16)
--- NOTE | 2019-05-28 02:30 | NUR ---
RN NOTES PATIENT IN BED SLEEPING, APPEARS COMFORTABLE. NO DISTRESS NOTED.
[2019-05-28] MEDS: IV 1/2NS 1000 ML 1,000 ML IV PRN (06:00)
--- NOTE | 2019-05-28 06:44 | NUR ---
MS RN CLOSING NOTES PATIENT STILL SLEEPING IN BED, EASY TO AROUSE. BREATHING EVEN AND UNLABORED. NOT IN ANY DISTRESS, ON ROOM AIR, TOLERATING WELL WITH NO SOB NOTED. PERIPHERAL IV INFUSING AT 150ML/HR. ALL NEEDS AND CARE ATTENDED. NO ACUTE CHANGES OVERNIGHT. SAFETY MEASURES KEPT IN PLACE. BED IN LOW LOCKED POSITION WITH SIDE RAILS UP X3. CALL LIGHT WITHIN REACH. WILL ENDORSE ELVIRA TO ONCOMING RN
[2019-05-28 07:51] LABS: BASOPHILS % (AUTO) 0.2 % (0.0-2.0); EOSINOPHILS % (AUTO) 0.9 % (0.0-6.0); HEMATOCRIT 21 % (33-45); HEMOGLOBIN 7.3 g/dL (11.5-14.8); LYMPHOCYTES # (AUTO) 2.5 /CMM (0.8-4.8); LYMPHOCYTES % (AUTO) 43.9 % (20.0-44.0); MEAN CORPUSCULAR HGB CONC 34 g/dl (31.0-36.0); MEAN CORPUSCULAR VOLUME 92 fL (82-100); MONOCYTES # (AUTO) 0.8 /CMM (0.1-1.30); MONOCYTES % (AUTO) 14.4 % (2.0-12.0); NEUTROPHILS # (AUTO) 2.3 /CMM (1.8-8.9); NEUTROPHILS % (AUTO) 40.6 % (43.0-81.0); PLATELET COUNT (AUTO) 87 /CMM (150-450); RED BLOOD CELL COUNT(AUTO) 2.32 MIL/uL (4.0-5.2); WHITE BLOOD COUNT (AUTO) 5.6 K/uL (4.3-11.0)
--- NOTE | 2019-05-28 07:55 | NUR ---
MS RN RECEIVED ON BED, AWAKE,ALERT,ORIENTED X3, W/ PERIODS OF DEMENTIA,NO DISTRESS NOTED,
[2019-05-28 08:00] VITALS: BP 129/67
[2019-05-28 08:15] LABS: ALANINE AMINOTRANSFERASE 33 U/L (12-78); ALBUMIN 1.8 g/dL (3.4-5.0); ALKALINE PHOSPHATASE 59 U/L (46-116); ASPARTATE AMINOTRANSFERASE 68 U/L (15-37); BILIRUBIN,TOTAL 0.2 mg/dL (0.2-1.0); CARBON DIOXIDE 21 mmol/L (21-32); CHLORIDE 107 mmol/L (98-107); CREATININE 1.5 mg/dL (0.6-1.3); GLUCOSE 92 mg/dL (74-106); MAGNESIUM 1.8 mg/dL (1.8-2.4); PHOSPHORUS 1.5 mg/dL (2.5-4.9); POTASSIUM 3.5 mmol/L (3.5-5.1); SODIUM SERUM 132 mmol/L (136-145); TOTAL PROTEIN, SERUM 10.1 g/dL (6.4-8.2); UREA NITROGEN, BLOOD 18 mg/dL (7-18)
[2019-05-28] MEDS: ATENOLOL 25 MG TABLET PO SCH (08:49)
[2019-05-28] MEDS: PANTOPRAZOLE 40 MG TABLET.DR PO SCH (08:49)
--- NOTE | 2019-05-28 09:00 | NUR ---
MS RN RECEIVED ON BED, AWAKE,ALERT,ORIENTED X2-3,NOT IN ANY FORM OF DISTRESS,RESPIRATIONS EVEN AND UNLABORED,NO SOB NOTED, WILL MONITOR PATIENT'S CONDITION.
[2019-05-28] MEDS: ENSURE ENLIVE CHOC 237 ML CAN PO SCH ×3 (09:10→18:35)
--- NOTE | 2019-05-28 09:20 | NUR ---
MS RN WAS SEEN BY DR. DIANA Farrell/ ORDERS MADE AND CARRIED OUT,
[2019-05-28 09:55] LABS: EOSINOPHILS % (MANUAL) 1 % (0-4); LYMPHOCYTES % (MANUAL) 41 % (16-48); MONOCYTES % (MANUAL) 15 % (0-11.0); NEUTROPHILS % (MANUAL) 40 (42-76); REACTIVE LYMPHOCYTES 3 % (0-0)
[2019-05-28] MEDS: ONDANSETRON HCL/PF 4 MG/2 ML VIAL IVP PRN (10:53)
--- NOTE | 2019-05-28 11:30 | NUR ---
MS RN WALKED P/T W/ WALKER, TOLERATED WELL.
[2019-05-28] MEDS ORDERED: NEUTRA PHOS 1 POWD.PACKET PO ONE (13:30)
[2019-05-28 16:00] VITALS: BP 111/58
[2019-05-28 18:15] VITALS: BP 121/61
--- NOTE | 2019-05-28 18:15 | NUR ---
MS RN STARTED BLOOD TRANSFUSION W/ NO ADVERSE REACTION NOTED.
[2019-05-28 18:40] VITALS: BP 125/72
[2019-05-28 19:00] VITALS: BP 130/70
--- NOTE | 2019-05-28 19:00 | NUR ---
MS RN NOTE RECEIVED PT IN STABLE CONDITION A/O X1-2, UKRAINIAN SPEAKING ONLY. CURRENTLY RESTING IN BED. NO SIGNS OF SOB OR DISTRESS, NO INDICATIONS OF PAIN OR N/V. PT CURRENTLY RECEIVING BLOOD TRANSFUSION IN RFA #20, TOLERATING WELL. ALL CURRENT NEEDS ATTENDED TO. BED LOW, LOCKED, UPPER RAILS UP, AND CALL LIGHT WITHIN REACH. WILL CONT. TO MONITOR. PT TO BE DISCHARGE AFTER BLOOD TRANSFUSION PER DR. BARNETT ORDER. WILL CALL FAMILY TO NOTIFY OF DC.
--- NOTE | 2019-05-28 19:30 | NUR ---
MS RN NOTE LEFT MESSAGE FOR NICKI (SON) TO NOTIFY OF D/C ORDER. AWAITING RETURN CALL.
--- NOTE | 2019-05-28 19:55 | NUR ---
MS RN NOTE GADIEL (DAUGHTER) AT BEDSIDE, NOTIFIED OF D/C ORDER. DAUGHTER AGREES TO TAKE MOTHER HOPE POST BLOOD TRANSFUSION. EXTICARE TO BE DONE.
[2019-05-28 20:59] VITALS: BP 139/73
--- NOTE | 2019-05-28 20:59 | NUR ---
MS RN NOTE PT TOLERATED BLOOD TRANSFUSION. END VS: 139/73, 94%, 73, 18, 98.1. NO SIGNS OF SOB OR ACUTE DISTRESS. ALL BLOOD PRODUCT DISCARDED PROPERLY. WILL CONT. TO MONITOR.
--- NOTE | 2019-05-28 21:35 | NUR ---
MS RN NOTE DISCHARGE MED RECON NOT DONE YET BY [facility] BARAHONA. PER JUN, PT OKAY TO GO, HE WILL DO MED RECON. CHARGE NURSE SOLANGE MADE AWARE.
--- NOTE | 2019-05-28 21:40 | NUR ---
MS RN NOTE PT DISCHARGED IN STABLE CONDITION A/O X1. NO SIGNS OF SOB OR DISTRESS, NO INDICATION OF PAIN OR N/V. BODY ASSESSED, INTACT SKIN NOTED. ALL BELONGINGS NOTED AND SIGNED FOR BY DAUGHTER. IV SITE REMOVED, NO BLEEDING NOTED. ID BANDS REMOVED. PT LEFT FLOOR VIA WHEELCHAIR ACCOMPANIED BY DAUGHTER MIGUEL, BROUGHT DOWN BY SECURITY SYSTEM INSTALLER AND LEFT VIA PRIVATE CAR. ALL D/C TEACHING DONE WITH FAMILY WITH VERBALIZATION OF UNDERSTANDING. DISCHARGE PAPER SIGNED.
[2019-05-28] MEDS ORDERED: HYDR-4076 PO (21:59)
[2019-05-28] MEDS ORDERED: ATEN25TA PO (21:59)
== END 2019-05-28 21:40 | disposition home or self-care (01) | DRG 840 ==
LOC: ER 13:15 → TELE1 16:00 → TELE 05-23 02:45 → MED 05-23 08:16
PROVIDERS: ADMIT Internal Medicine; ATTEND Nurse Practitioner Acute Care
PROC: 30233N1 Transfusion of Nonautologous Red Blood Cells into Peripheral Vein, Percutaneous Approach (ICD-10-PCS; principal; 2019-05-21)
PROC: 07DR3ZX Extraction of Iliac Bone Marrow, Percutaneous Approach, Diagnostic (ICD-10-PCS; 2019-05-26)
DX: C90.00 Multiple myeloma not having achieved remission (principal); N17.0 Acute kidney failure with tubular necrosis; E43 Unspecified severe protein-calorie malnutrition; G93.41 Metabolic encephalopathy; E87.1 Hypo-osmolality and hyponatremia; N39.0 Urinary tract infection, site not specified; R64 Cachexia; E83.52 Hypercalcemia; D53.9 Nutritional anemia, unspecified; D63.8 Anemia in other chronic diseases classified elsewhere; E83.42 Hypomagnesemia; E87.6 Hypokalemia; D69.6 Thrombocytopenia, unspecified; I12.9 Hypertensive chronic kidney disease with stage 1 through stage 4 chronic kidney disease, or unspecified chronic kidney disease; N18.9 Chronic kidney disease, unspecified; F03.90 Unspecified dementia, unspecified severity, without behavioral disturbance, psychotic disturbance, mood disturbance, and anxiety; E83.51 Hypocalcemia; E86.9 Volume depletion, unspecified; D89.2 Hypergammaglobulinemia, unspecified; E86.1 Hypovolemia; E87.70 Fluid overload, unspecified
CPT/HCPCS: 36415; 71045-TC; 71250-TC; 76770-TC; 77075-TC; 80048-TC; 80053-TC; 80076-TC; 81000-TC; 82232; 82272-TC; 82550-TC; 82570-TC; 82728-TC; 83540-TC; 83690-TC; 83735-TC; 83970; 84100-TC; 84155; 84155-TC; 84165; 84300-TC; 84484-TC; 85025-TC; 85610-TC; 85652-TC; 85730-TC; 86850-TC; 86921-TC; 87081-TC; 97116-TC; 97530-TC; A6253; A6403; C9113; G0378; J0696; J2405; J2430; J3475; J3480; J3490; J7030; J7040; J7050; J7060; J7070; P9016-BL

== ENCOUNTER 2019-07-03 12:59 | Inpatient (IN) | payer MEDICARE, MEDICAID ==
[2019-07-03] VITALS (10 sets, daily range): BP systolic 105–114; BP diastolic 59–71
[~2019-07-03] VITALS: Ht 149.9 cm; Wt 34.0 kg
--- NOTE | 2019-07-03 00:55 | NUR ---
0055 PATIENT DECIDED TO GO AMA DESPITE EXPLANATION OF ITS RISKS. SON NICKI AT BEDSIDE AND AWARE OF HIS MOTHER'S DECISION AND AGREED TO IT. WHEELED PATIENT TO THEIR CAR IN NO APPARENT DISTRESS. ABLE TO WALK WITH FWW.
[~2019-07-03 12:59] MED LIST: ATEN25TA PO; HYDR-4076 PO; LOSA50TA39 PO; ONDA4TAB5 PO
--- NOTE | 2019-07-03 13:06 | NUR ---
"ANGELA, SENT BY PMD DUE TO LOW HGB 5.6" pt aaox4, -sob, pt on monitor, vss, pending md ruiz
--- NOTE | 2019-07-03 13:26 | NUR ---
piv established, blood drawn, sent to lab
--- NOTE | 2019-07-03 13:28 | NUR ---
FAMILY NICKI LEFT CONTACT # [phone]
[2019-07-03 13:32] LABS: BASOPHILS % (AUTO) 0.1 % (0.0-2.0); EOSINOPHILS % (AUTO) 2.7 % (0.0-6.0); LYMPHOCYTES # (AUTO) 1.4 /CMM (0.8-4.8); LYMPHOCYTES % (AUTO) 37.9 % (20.0-44.0); MEAN CORPUSCULAR HGB CONC 35 g/dl (31.0-36.0); MEAN CORPUSCULAR VOLUME 90 fL (82-100); MONOCYTES # (AUTO) 0.7 /CMM (0.1-1.30); MONOCYTES % (AUTO) 17.4 % (2.0-12.0); NEUTROPHILS # (AUTO) 1.6 /CMM (1.8-8.9); NEUTROPHILS % (AUTO) 41.9 % (43.0-81.0); PLATELET COUNT (AUTO) 59 /CMM (150-450); RED BLOOD CELL COUNT(AUTO) 2.17 MIL/uL (4.0-5.2); WHITE BLOOD COUNT (AUTO) 3.8 K/uL (4.3-11.0)
[2019-07-03 13:35] LABS: HEMOGLOBIN 6.7 g/dL (11.5-14.8)
[2019-07-03 13:36] LABS: HEMATOCRIT 20 % (33-45)
[2019-07-03 13:39] LABS: CALCIUM, SERUM 7.8 mg/dL (8.5-10.1); CREATININE 1.3 mg/dL (0.6-1.3); POTASSIUM 3.3 mmol/L (3.5-5.1)
[2019-07-03] MEDS ORDERED: METO-295 PO (14:05)
--- NOTE | 2019-07-03 14:08 | NUR ---
CALLED FOR MS BED
[2019-07-03] MEDS ORDERED: POTASSIUM CHLORIDE 20 MEQ TAB.PRT.SR PO ONE ×2 (14:30→15:24)
[2019-07-03] MEDS ORDERED: IV NS 0.9% 500 ML BAG IV ONE (14:30)
--- NOTE | 2019-07-03 15:17 | NUR ---
RECEIVED TELEPHONE REPORT FROM DONOVAN YANCEY
--- NOTE | 2019-07-03 15:36 | NUR ---
RECEIVED PT VIA GURNEY FROM ER. PT AWAKE, ALERT AND ORIENTED X 1, SETSWANA SPEAKING, SON BY BEDSIDE TRANSLATING TO COSTA RICAN. PT ON ROOM AIR, SATURATING WELL, RESPIRATIONS EVEN AND UNLABORED, NO SIGNS OF RESPIRATORY DISTRESS NOTED. 1 UNIT OF PRBC INFUSING INTO RIGHT AC G18 AT 340CC/HOUR, PT TOLERATING TRANSFUSION WELL, NO SIGNS OF ADVERSE REACTION NOTED. PT ABLE TO AMBULATE WITH WALKER HOWEVER GAIT IS UNSTEADY. BED ALARM TURNED ON, BED IN LOW POSITION, LOCKED, CALL LIGHT WITHIN REACH. ALL BELONGINGS ACCOUNTED FOR, INTRODUCED SELF, DISCUSSED PLAN OF CARE. PT DENIES ANY PAIN AT THIS TIME.
[2019-07-03 15:38] LABS: NEUTROPHILS % (MANUAL) 45 (42-76)
[2019-07-03 15:39] LABS: BAND % (MANUAL) 5 % (0.0-5.0); LYMPHOCYTES % (MANUAL) 35 % (16-48); MONOCYTES % (MANUAL) 15 % (0-11.0)
--- NOTE | 2019-07-03 15:40 | NUR ---
report given to alan rn for sin pt transported to 1st floor
--- NOTE | 2019-07-03 16:11 | NUR ---
1PRBC COMPLETED INFUSING. PT TOLERATED WELL, NO SIGNS OF ADVERSE REACTION NOTED.
[2019-07-03] MEDS ORDERED: IV NS 0.9% 1,000 ML IV PRN (17:49)
[2019-07-03] MEDS ORDERED: ZOLPIDEM TARTRATE 5 MG TABLET PO PRN (18:00)
[2019-07-03] MEDS ORDERED: HYDROCODONE/APAP 5/325MG 1 EACH TABLET PO PRN (18:00)
[2019-07-03] MEDS ORDERED: ONDANSETRON HCL/PF 4 MG/2 ML VIAL IVP PRN (18:00)
[2019-07-03] MEDS ORDERED: Z GUARD REMEDY 2 OZ OINT TP PRN (18:00)
[2019-07-03] MEDS ORDERED: MAG HYDROX/AL HYDROX/SIMETH 30 ML UDC PO PRN (18:00)
[2019-07-03] MEDS ORDERED: MAGNESIUM HYDROXIDE 30 ML UDC PO PRN (18:00)
[2019-07-03] MEDS ORDERED: ACETAMINOPHEN 325 MG TABLET PO PRN (18:00)
[2019-07-03] MEDS ORDERED: ACETAMINOPHEN 325 MG TABLET PO ONE (19:00)
[2019-07-03] MEDS ORDERED: diphenhydrAMINE HCL 50 MG/ML VIAL IV ONE (19:00)
--- NOTE | 2019-07-03 19:07 | NUR ---
MS RN CLOSING NOTE PT AWAKE, ALERT AND ORIENTED X 1, ON ROOM AIR, SATURATING WELL, RESPIRATIONS EVEN AND UNLABORED, NO SIGNS OF RESPIRATORY DISTRESS NOTED. IV SITE ON LEFT AC G18 INTACT, PATENT WITH SALINE LOCK. BED ALARM TURNED ON, BED IN LOW POSITION, LOCKED, CALL LIGHT WITHIN REACH. WILL ENDORSE TO NOC SHIFT NURSE.
--- NOTE | 2019-07-03 23:55 | NUR ---
4207 DR BHAKTA MADE AWARE THAT PATIENT WANTED TO GO AMA.
--- NOTE | 2019-07-03 23:56 | NUR ---
RN NOTES PATIENT IN BED AWAKE, ALERT AND ORIENTED. VERBALLY ABLE TO COMMUNICATE NEEDS. ARMINIAN SPEAKING. SON AND DAUGHTER AT BEDSIDE TO INTERPRET. NO RESPIRATORY DISTRESS NOTED. BREATHING EVEN AND UNLABORED. ROOM AIR WELL TOLERATED. INFUSED 1 BAG OF RBC, INFUSED WELL. NO SIDE EFFECT NOTED. KEPT CLEAN AND DRY. PATIENT WENT ON AMA AFTER BLOOD TRANSFUSION. LEFT THE BUILDING AT 2355. PERSUADED TO LEAVE IN AM FOR BLOOD WORKS TO BE DONE BUT REFUSED AND INSISTED TO GO HOME. LEFT IN STABLE CONDITION. IN NO APPARENT DISTRESS. NO COMPLAINT OF PAIN OR DISCOMFORT. IV PEERIPHERAL LINE REMOVED. SIGNED AMA FORM.
== END 2019-07-03 23:55 | disposition left against medical advice (07) | DRG 840 ==
LOC: ER 13:01 → MEDSG1 14:56
PROVIDERS: ADMIT Hospitalist; ATTEND Hospitalist
PROC: 30233N1 Transfusion of Nonautologous Red Blood Cells into Peripheral Vein, Percutaneous Approach (ICD-10-PCS; principal; 2019-07-03)
DX: C90.00 Multiple myeloma not having achieved remission (principal); E43 Unspecified severe protein-calorie malnutrition; D61.818 Other pancytopenia; E87.1 Hypo-osmolality and hyponatremia; Z68.1 Body mass index [BMI] 19.9 or less, adult; I10 Essential (primary) hypertension; F03.90 Unspecified dementia, unspecified severity, without behavioral disturbance, psychotic disturbance, mood disturbance, and anxiety; E87.6 Hypokalemia; D63.0 Anemia in neoplastic disease
CPT/HCPCS: 36415; 71045-TC; 80048-TC; 85025-TC; 85730-TC; 86850-TC; 86921-TC; 87081-TC; G0378; J1200; J7030; J7040; P9016-BL

== ENCOUNTER → 2020-08-20 | Emergency (ER) | payer MEDICARE, OTHER ==
[~2020-08-20] MED LIST changes: -ATEN25TA PO; -LOSA50TA39 PO; +METO-295 PO; -ONDA4TAB5 PO
--- NOTE | 2020-08-20 15:55 | NUR ---
pt left prior to triage
== END | disposition left against medical advice (07) ==
LOC: ER 15:10
DX: Z53.21 Procedure and treatment not carried out due to patient leaving prior to being seen by health care provider (principal)

== ENCOUNTER 2020-08-25 11:06 | Inpatient (IN) | payer MEDICARE, OTHER ==
[~2020-08-25] VITALS: Ht 152.4 cm; Wt 45.4 kg
--- NOTE | 2020-08-25 11:38 | NUR ---
PT BIB FAMILY. WHEELED TO ED BED 18. PER FAMILY, RECIEVED A CALL FROM [facility] MD LAWSON INFORMING THEM OF PATIENTS LOW HEMOGLOBIN COUNT. C/O GENERALIZED WEAKNESS. HX OF MULTIPLE MYELOMA. GOWNED AND PLACED ON MONITOR. VSS. AWAITING MD ERICKSON.
--- NOTE | 2020-08-25 12:04 | NUR ---
DR CRUZ AT BEDSIDE FOR EVAL.
[2020-08-25] MEDS ORDERED: PANTOPRAZOLE 40 MG VIAL ONE (12:13)
--- NOTE | 2020-08-25 12:18 | NUR ---
RADIOLOGY AT BEDSIDE FOR CHEST XRAY.
[2020-08-25] MEDS ORDERED: LENA10CA PO (12:20)
[2020-08-25] MEDS ORDERED: CHOL10002 PO (12:20)
[2020-08-25] MEDS ORDERED: ACYCLOVIR (12:20)
[2020-08-25] MEDS ORDERED: ATEN25TA PO (12:20)
[2020-08-25] MEDS ORDERED: ASPI-1169 PO (12:20)
[2020-08-25] MEDS ORDERED: PANTOPRAZOLE 40 MG VIAL IV ONE (12:30)
--- NOTE | 2020-08-25 12:30 | NUR ---
IV LINE STARTED BLOOD DRAWN AND SENT TO LAB.
[2020-08-25 12:51] LABS: BASOPHILS # (AUTO) 0.1 /CMM (0.0-0.2); BASOPHILS % (AUTO) 0.9 % (0.0-2.0); EOSINOPHILS % (AUTO) 0.4 % (0.0-6.0); HEMATOCRIT 25 % (33-45); HEMOGLOBIN 8.6 g/dL (11.5-14.8); LYMPHOCYTES # (AUTO) 2.1 /CMM (0.8-4.8); LYMPHOCYTES % (AUTO) 35.2 % (20.0-44.0); MEAN CORPUSCULAR HGB CONC 34 g/dl (31.0-36.0); MEAN CORPUSCULAR VOLUME 94 fL (82-100); MONOCYTES # (AUTO) 1.5 /CMM (0.1-1.30); MONOCYTES % (AUTO) 24.7 % (2.0-12.0); NEUTROPHILS # (AUTO) 2.3 /CMM (1.8-8.9); NEUTROPHILS % (AUTO) 38.8 % (43.0-81.0); RED BLOOD CELL COUNT(AUTO) 2.66 MIL/uL (4.0-5.2)
[2020-08-25 13:15] LABS: ALANINE AMINOTRANSFERASE 18 U/L (12-78); ALKALINE PHOSPHATASE 48 U/L (46-116); ASPARTATE AMINOTRANSFERASE 45 U/L (15-37); BILIRUBIN,DIRECT 0.2 mg/dL (0.0-0.2); BILIRUBIN,TOTAL 0.5 mg/dL (0.2-1.0); CALCIUM, SERUM 7.7 mg/dL (8.5-10.1); CARBON DIOXIDE 20 mmol/L (21-32); CHLORIDE 101 mmol/L (98-107); CREATININE 3.1 mg/dL (0.6-1.3); GLUCOSE 113 mg/dL (74-106); LIPASE 128 U/L (73-393); POTASSIUM 4.1 mmol/L (3.5-5.1); SODIUM SERUM 132 mmol/L (136-145); UREA NITROGEN, BLOOD 38 mg/dL (7-18)
[2020-08-25 13:21] LABS: PLATELET COUNT (AUTO) 35 /CMM (150-450)
[2020-08-25 13:55] LABS: BAND % (MANUAL) 1 % (0.0-5.0); EOSINOPHILS % (MANUAL) 1 % (0-4); LYMPHOCYTES % (MANUAL) 35 % (16-48); MONOCYTES % (MANUAL) 20 % (0-11.0); NEUTROPHILS % (MANUAL) 43 (42-76)
[2020-08-25] MEDS ORDERED: CEFTRIAXONE 1 G in IV D5W 50 ML IV ONE (14:00)
[2020-08-25] MEDS ORDERED: IV NS 0.9% 1,000 ML BAG IV ONE (14:00)
[2020-08-25] MEDS ORDERED: CEFTRIAXONE 1GM BAG (ER ONLY) 50 ML IV ONE (14:05)
[2020-08-25 17:02] LABS: BILIRUBIN,URINE NEGATIVE (NEGATIVE); COLOR,URINE YELLOW (YELLOW); LEUKOCYTE ESTERASE ,URINE NEGATIVE (NEGATIVE); NITRITE, URINE NEGATIVE (NEGATIVE); PROTEIN,URINE 100 mg/dl (NEGATIVE); UGLUCOSE NEGATIVE (NEGATIVE); UROBILINOGEN,URINE 0.2 EU/dL (0.2)
[2020-08-25 17:11] LABS: BACTERIA,URINE Rare /HPF (None Seen); RBC,URINE 0-2 /HPF (0-2); WBC,URINE 0-2 /HPF (0-3)
[2020-08-25 17:12] LABS: EOSINOPHIL,URINE None Seen; SQUAMOUS EPITHELIAL CELL,UR Few /HPF (None Seen)
[2020-08-25] MEDS ORDERED: Z GUARD REMEDY 2 OZ OINT TP PRN (17:30)
[2020-08-25] MEDS ORDERED: ZOLPIDEM TARTRATE 5 MG TABLET PO PRN (17:30)
[2020-08-25] MEDS ORDERED: MAGNESIUM HYDROXIDE 30 ML UDC PO PRN (17:30)
[2020-08-25] MEDS ORDERED: ONDANSETRON HCL/PF 4 MG/2 ML VIAL IVP PRN (17:30)
[2020-08-25] MEDS ORDERED: ACETAMINOPHEN 325 MG TABLET PO PRN (17:30)
[2020-08-25] MEDS ORDERED: MAG HYDROX/AL HYDROX/SIMETH 30 ML UDC PO PRN (17:30)
[2020-08-25] MEDS: PIPERACILLIN /TAZOBACTAM 2.25 G in IV D5W 50 ML IV SCH (19:00)
[2020-08-25] MEDS ORDERED: ATENOLOL 25 MG TABLET PO PRN (19:30)
[2020-08-25] MEDS: VANCOMYCIN 0.75 GM in IV D5W 250 ML IV SCH (20:00)
[2020-08-25 22:09] LABS: CREATININE, URINE 45.1 MG/DL (30.0-125.0); URINE TOTAL PROTEIN 223.3 mg/dL (0-11.9)
[2020-08-26] MEDS: PIPERACILLIN /TAZOBACTAM 2.25 G in IV D5W 50 ML IV SCH ×4 (00:38→17:48)
[2020-08-26 05:20] LABS: BASOPHILS % (AUTO) 0.5 % (0.0-2.0); EOSINOPHILS % (AUTO) 0.7 % (0.0-6.0); HEMATOCRIT 24 % (33-45); HEMOGLOBIN 8.2 g/dL (11.5-14.8); LYMPHOCYTES # (AUTO) 1.9 /CMM (0.8-4.8); LYMPHOCYTES % (AUTO) 34.1 % (20.0-44.0); MEAN CORPUSCULAR HGB CONC 34 g/dl (31.0-36.0); MEAN CORPUSCULAR VOLUME 94 fL (82-100); MONOCYTES # (AUTO) 1.6 /CMM (0.1-1.30); MONOCYTES % (AUTO) 27.5 % (2.0-12.0); NEUTROPHILS # (AUTO) 2.1 /CMM (1.8-8.9); NEUTROPHILS % (AUTO) 37.2 % (43.0-81.0); RED BLOOD CELL COUNT(AUTO) 2.58 MIL/uL (4.0-5.2); WHITE BLOOD COUNT (AUTO) 5.7 K/uL (4.3-11.0)
[2020-08-26 05:30] LABS: PLATELET COUNT (AUTO) 27 /CMM (150-450)
[2020-08-26 05:32] LABS: ALANINE AMINOTRANSFERASE 17 U/L (12-78); ALBUMIN 1.6 g/dL (3.4-5.0); ALKALINE PHOSPHATASE 40 U/L (46-116); ASPARTATE AMINOTRANSFERASE 42 U/L (15-37); BILIRUBIN,TOTAL 0.5 mg/dL (0.2-1.0); CALCIUM, SERUM 7.1 mg/dL (8.5-10.1); CARBON DIOXIDE 19 mmol/L (21-32); CHLORIDE 106 mmol/L (98-107); CREATININE 2.7 mg/dL (0.6-1.3); GLUCOSE 117 mg/dL (74-106); PHOSPHORUS 3.8 mg/dL (2.5-4.9); POTASSIUM 3.9 mmol/L (3.5-5.1); SODIUM SERUM 135 mmol/L (136-145); UREA NITROGEN, BLOOD 33 mg/dL (7-18)
[2020-08-26 05:45] LABS: CREATINE KINASE, TOTAL 246 U/L (26-192); THYROID STIMULATING HORMONE 0.634 uIU/mL (0.358-3.74)
[2020-08-26 06:11] LABS: BAND % (MANUAL) 2 % (0.0-5.0); LYMPHOCYTES % (MANUAL) 44 % (16-48); METAMYELOCYTES % 1 % (0-0); MONOCYTES % (MANUAL) 15 % (0-11.0); NEUTROPHILS % (MANUAL) 38 (42-76)
--- NOTE | 2020-08-26 07:25 | NUR ---
REPORT GIVEN TO VIKAS YANCEY FOR [facility].
[2020-08-26] MEDS ORDERED: ASPIRIN 81 MG TAB.CHEW ONE (08:09)
[2020-08-26] MEDS: IV NS 0.9% 1,000 ML IV PRN ×2 (08:27→17:48)
--- NOTE | 2020-08-26 08:27 | NUR ---
PATIENT A/OX3, HUNGARIAN SPEAKING, ASSISTED TO RESTROOM. NO DISTRESS NOTED. KEPT COMFORTABLE. WILL CONTINUE TO MONITOR.
[2020-08-26] MEDS ORDERED: ASPIRIN 81 MG TAB.CHEW PO SCH (09:00)
[2020-08-26 11:04] LABS: D-DIMER 1.95 mg/L(FEU (0.17-0.50)
--- NOTE | 2020-08-26 18:14 | NUR ---
PATIENT RESTING, ASSISTED TO RESTROOM, ATE BREAKFAST, LUNCH AND DINNER. TOLERATED WELL. CONTINUE ON IVF. NO DISTRESS NOTED. KEPT COMFORTABLE. WILL CONTINUE TO MONITOR.
--- NOTE | 2020-08-26 20:12 | NUR ---
PT AMBULATED TO THE RESTROOM ON HER OWN. PT WAS THEN BROUGHT BACK TO THE BED, PROVIDED WITH BLANKETS, AND A PILLOW. VSS.
--- NOTE | 2020-08-27 00:18 | NUR ---
PT AMBULATED TO THE RESTROOM BY HER OWN USING A WALKER.
--- NOTE | 2020-08-27 04:20 | NUR ---
PT REMAINS ASLEEP, VSS.
--- NOTE | 2020-08-27 05:31 | NUR ---
PT PULLED OUT IV. NEW IV PLACED IN LF 20G, BLOOD COLLECTED, SENT TO LAB FOR MORNING LABS.
[2020-08-27] MEDS: IV NS 0.9% 1,000 ML IV PRN (06:15)
[2020-08-27] MEDS: PIPERACILLIN /TAZOBACTAM 2.25 G in IV D5W 50 ML IV SCH ×6 (06:15→23:36)
[2020-08-27 06:20] LABS: CALCIUM, SERUM 6.9 mg/dL (8.5-10.1); CARBON DIOXIDE 16 mmol/L (21-32); CHLORIDE 109 mmol/L (98-107); CREATININE 2.4 mg/dL (0.6-1.3); GLUCOSE 135 mg/dL (74-106); MAGNESIUM 1.7 mg/dL (1.8-2.4); POTASSIUM 3.6 mmol/L (3.5-5.1); SODIUM SERUM 138 mmol/L (136-145); UREA NITROGEN, BLOOD 23 mg/dL (7-18)
--- NOTE | 2020-08-27 06:44 | NUR ---
PT PLACED IN DIFFERENT GOWN, PROVIDED WITH BLAKETS, REMAINS ON MONITOR, AND PULSE OX. VSS.
[2020-08-27 06:48] LABS: BASOPHILS # (AUTO) 0.1 /CMM (0.0-0.2); BASOPHILS % (AUTO) 0.7 % (0.0-2.0); HEMATOCRIT 25 % (33-45); HEMOGLOBIN 8.4 g/dL (11.5-14.8); LYMPHOCYTES # (AUTO) 4.1 /CMM (0.8-4.8); MEAN CORPUSCULAR HGB CONC 34 g/dl (31.0-36.0); MEAN CORPUSCULAR VOLUME 95 fL (82-100); MONOCYTES # (AUTO) 2.9 /CMM (0.1-1.30); MONOCYTES % (AUTO) 27.3 % (2.0-12.0); NEUTROPHILS # (AUTO) 3.4 /CMM (1.8-8.9); RED BLOOD CELL COUNT(AUTO) 2.62 MIL/uL (4.0-5.2); WHITE BLOOD COUNT (AUTO) 10.6 K/uL (4.3-11.0)
[2020-08-27 06:59] LABS: PLATELET COUNT (AUTO) 29 /CMM (150-450)
--- NOTE | 2020-08-27 07:27 | NUR ---
PT'S SON CALLED (NICKI) SON REQUESTING TO SPEAK TO .
--- NOTE | 2020-08-27 08:30 | NUR ---
CONTACT INFO: BINGPATO (DAUGHTER) - [phone]
[2020-08-27] MEDS ORDERED: HYDROCODONE/APAP 5/325MG TABLET ONE (08:32)
[2020-08-27] MEDS: HYDROCODONE/APAP 5/325MG TABLET PO PRN (09:22)
--- NOTE | 2020-08-27 10:46 | NUR ---
received bed 321
--- NOTE | 2020-08-27 10:50 | NUR ---
report given to carina avina at [facility]
--- NOTE | 2020-08-27 11:10 | NUR ---
transferred to room 321
[2020-08-27 11:16] LABS: CREATININE KINASE (CK),MB 2.9 ng/mL (0.0-5.3)
--- NOTE | 2020-08-27 11:32 | NUR ---
FIRE MARSHAL NOTES RECEIVED PATIENT FROM ER. PATIENT ALERT, ORIENTED X3. AMBULATORY, GAMBIAN SPEAKING. SITUATED PATIENT IN BED. CALL LIGHT WITHIN REACH. SAFETY MEASURES IN PLACE. PATIENT WITH NORMAL SALINE RUNNING 125ML/HR. ON PERIPHERAL IV. BED IN LOW LOCKED POSITION. WILL CONTINUE TO MONITOR.
[2020-08-27] MEDS ORDERED: Magnesium 1GM/D5W 100ML PREMIX 100 ML IV SCH (12:30)
--- NOTE | 2020-08-27 13:18 | NUR ---
WATER CARTER NOTES PATIENTS HEART RATE NOTED JUMPING FROM 101-160. DR. BHAKTA MADE AWARE ORDERS FOR STAT EKG. NOTED AND CARRIED OUT.
[2020-08-27 14:20] LABS: BAND % (MANUAL) 3 % (0.0-5.0); EOSINOPHILS % (MANUAL) 1 % (0-4); LYMPHOCYTES % (MANUAL) 24 % (16-48); MONOCYTES % (MANUAL) 19 % (0-11.0); MYELOCYTES % 2 % (0-0); NEUTROPHILS % (MANUAL) 48 (42-76); REACTIVE LYMPHOCYTES 3 % (0-0)
[2020-08-27 15:47] LABS: D-DIMER 2.71 mg/L(FEU (0.17-0.50)
[2020-08-27 16:28] VITALS: BP 107/64
--- NOTE | 2020-08-27 19:05 | NUR ---
EXTRACT MIXER OPENING NOTES RECEIVED PATIENT IN BED AWAKE ALERT AND ORIENTED X3, RESPIRATIONS EVEN AND UNLABORED WITH EQUAL RISE AND FALL OF CHEST, DENIES ANY PAIN OR DISCOMFORT AT THIS TIME, IV SITE TO RIGHT UPPER ARM #20 G INTACT AND PATENT NO REDNESS, NO INFILTRATION PRESENT, ON CAP CUTTER [address], NO DISTRESS PRESENT, ORIENTED TO STAFF AND CALL LIGHT AND KEPT WITHIN REACH, SAFETY PRECAUTIONS MAINTAINED LOW BED AND LOCKED, BED ALARM IN PLACE, FLUIDS OFFERED ALL NEEDS ATTENDED AT THIS TIME, WILL CONTINUE TO MONITOR.
--- NOTE | 2020-08-27 19:44 | NUR ---
MS/ RN CLOSING NOTES PT LAYING IN BED COMFORTABLY. ALERT AND ORIENTED X4. NO APPARENT SIGNS OF DISCOMFORT OR DISTRESS.PT AMBULATORY WITH ASSIST. PATIENT LAYING IN LOW FOWLERS POSITION. BED POSITIONED AT LOWEST. CALL LIGHT WITHIN REACH. DISCHARGE PLANNING INITIATED. WILL ENDORSE TO REED REPAIRER. WILL CONTINUE PLAN OF CARE.
[2020-08-27 20:00] VITALS: BP 121/65
[2020-08-27] MEDS: VANCOMYCIN 0.75 GM in IV D5W 250 ML IV SCH (20:29)
[2020-08-27 21:00] VITALS: BP 121/65
--- NOTE | 2020-08-27 23:30 | NUR ---
DIGITAL HARDWARE DESIGN ENGINEER CLOSING NOTES REPORT GIVEN TO [employer] FOR CONTINUITY OF CARE, PATIENT IN BED AWAKE ALERT AND ORIENTED X3, RESPIRATIONS EVEN AND UNLABORED WITH EQUAL RISE AND FALL OF CHEST, DENIES ANY PAIN OR DISCOMFORT AT THIS TIME, IV SITE TO RIGHT UPPER ARM #20 G INTACT AND PATENT NO REDNESS, NO INFILTRATION PRESENT, ON MUSEUM DOCENT ST 104, NO DISTRESS PRESENT, ORIENTED TO STAFF AND CALL LIGHT AND KEPT WITHIN REACH, SAFETY PRECAUTIONS MAINTAINED LOW BED AND LOCKED, BED ALARM IN PLACE, FLUIDS AND TOILETING NEEDS OFFERED ALL NEEDS ATTENDED AT THIS TIME.REMAINS COMFORTABLE AT THIS TIME.
[2020-08-28] VITALS (10 sets, daily range): BP systolic 105–122; BP diastolic 50–78
[2020-08-28] MEDS ORDERED: PHYTONADIONE INJ 10 MG/1 ML AMPUL SQ ONE
[2020-08-28] MEDS: IV NS 0.9% 1,000 ML IV PRN ×2 (04:58→22:55)
[2020-08-28] MEDS: PIPERACILLIN /TAZOBACTAM 2.25 G in IV D5W 50 ML IV SCH ×4 (05:00→23:02)
--- NOTE | 2020-08-28 06:10 | NUR ---
PIG CASTING MACHINE OPERATOR CLOSING NOTE Patient asleep in bed, A/O x3. Tele monitor reading sinus rhythm. Breathing even, diminished, unlabored, on room air. No acute distress or SOB noted. Skin is warm, pink, dry, intact. IV site JORGE 20g running NS @ 75 ml/hr. No signs of redness. Patient had 1 bowel movement. Medications administered as ordered. All needs met. Bed in low position, wheels locked, side rails up x2, call light within reach. Will endorse to oncoming nurse.
--- NOTE | 2020-08-28 08:10 | NUR ---
RN OPENING NOTE Patient is resting in bed, A/O x3, showing no signs of acute distress or SOB, stable on RA. Tele monitor ST 115-130s. IV line is clean and intact flushing well. Patient has no complaints of pain or discomfort at this time. IV line is clean and intact running NS@125mls/hr. Bed is in lowest position, side rails x2, in upright position, call light is within reach, fall safety and aspiration precautions enforced. Will continue with plan of care.
[2020-08-28 08:43] LABS: BASOPHILS % (AUTO) 0.4 % (0.0-2.0); EOSINOPHILS % (AUTO) 1.3 % (0.0-6.0); LYMPHOCYTES # (AUTO) 2.1 /CMM (0.8-4.8); LYMPHOCYTES % (AUTO) 33.3 % (20.0-44.0); MEAN CORPUSCULAR HGB CONC 35 g/dl (31.0-36.0); MEAN CORPUSCULAR VOLUME 93 fL (82-100); MONOCYTES # (AUTO) 1.8 /CMM (0.1-1.30); MONOCYTES % (AUTO) 28.9 % (2.0-12.0); NEUTROPHILS # (AUTO) 2.3 /CMM (1.8-8.9); NEUTROPHILS % (AUTO) 36.1 % (43.0-81.0); RED BLOOD CELL COUNT(AUTO) 2.15 MIL/uL (4.0-5.2); WHITE BLOOD COUNT (AUTO) 6.3 K/uL (4.3-11.0)
[2020-08-28 09:31] LABS: HEMOGLOBIN 6.9 g/dL (11.5-14.8)
[2020-08-28 09:32] LABS: HEMATOCRIT 20 % (33-45); PLATELET COUNT (AUTO) 15 /CMM (150-450)
--- NOTE | 2020-08-28 09:54 | NUR ---
RN NOTE Notified Dr. Romero that patient's Hgb level is 6.9 today, per Dr. Romero to order 1 unite PRBC. Platelet is 15--no new orders from Dr. Romero in regards to platelet level. Dr. Johnson made aware.
[2020-08-28 10:44] LABS: CALCIUM, SERUM 6.7 mg/dL (8.5-10.1); CARBON DIOXIDE 18 mmol/L (21-32); CHLORIDE 108 mmol/L (98-107); CREATININE 2.3 mg/dL (0.6-1.3); GLUCOSE 134 mg/dL (74-106); MAGNESIUM 1.9 mg/dL (1.8-2.4); PHOSPHORUS 2.9 mg/dL (2.5-4.9); POTASSIUM 3.2 mmol/L (3.5-5.1); SODIUM SERUM 138 mmol/L (136-145); UREA NITROGEN, BLOOD 21 mg/dL (7-18)
[2020-08-28 13:32] LABS: EOSINOPHILS % (MANUAL) 1 % (0-4); LYMPHOCYTES % (MANUAL) 38 % (16-48); MONOCYTES % (MANUAL) 22 % (0-11.0); MYELOCYTES % 2 % (0-0); NEUTROPHILS % (MANUAL) 37 (42-76)
--- NOTE | 2020-08-28 14:00 | NUR ---
RN NOTE Spoke with Michelle from blood bank and she stated that Type and Screen hasn't been done yet, stated they are very busy today in lab.
[2020-08-28] MEDS ORDERED: POTASSIUM CHLORIDE 10 MEQ TABLET.SA PO ONE (15:00)
--- NOTE | 2020-08-28 17:59 | NUR ---
RN CLOSING NOTE Patient is resting in bed, A/O x3, showing no signs of acute distress or SOB, stable on RA. Tele monitor ST 110. Patient has no complaints of pain or discomfort at this time. IV line is clean and intact running NS@125mls/hr. All patient needs met, all due medications given, patient kept clean and dry throughout shift. Bed is in lowest position, side rails x2, in upright position, call light is within reach, fall safety and aspiration precautions enforced. Will endorse to shift supervisor rn for ELVIRA.
--- NOTE | 2020-08-28 18:46 | NUR ---
RN NOTE Spoke with Michelle from blood bank stating that patient has O POSITIVE blood type and that there is a shortage of blood from [facility]. She doesn't know when the blood will be available. Will endorse to slot shift supervisor RN.
--- NOTE | 2020-08-28 22:42 | NUR ---
RN NOTES: PT. TEMP 100.3 TYLENOL 650 MG PO PRN GIVEN , APPLIED COOLING MEASURES, WILL CONTINUE TO MONITOR.
--- NOTE | 2020-08-28 23:42 | NUR ---
RN NOTES: RECHECK TEMP 98.7 , PT. DENIES ANY PAIN DISCOMFORT ,NO ACUTE DISTRESS NOTED, PT. RESTING WELL ,WILL CONTINUE WITH CARE .
[2020-08-29] VITALS (18 sets, daily range): BP systolic 100–127; BP diastolic 53–73
[2020-08-29] MEDS: PIPERACILLIN /TAZOBACTAM 2.25 G in IV D5W 50 ML IV SCH ×3 (05:32→17:34)
--- NOTE | 2020-08-29 05:38 | NUR ---
RN NOTES PT.STARED BLOOD TRANSFUSION , VS IN WNL SEETHE VS CHART, WIIL CONTINUE WITH CARE.
--- NOTE | 2020-08-29 05:53 | NUR ---
RN NOTES PT. BLOOD TRANSFUSION TOLERTED WELL, CONTINUES INFUSING, NO ACUTE DISTRESS NOTED, VITAL SIGNS WNL, PLEASE SEE THE VITAL SIGNS CHART, WILL CONTINUE WITH CARE.
--- NOTE | 2020-08-29 06:23 | NUR ---
RN NOTES PT. BLOOD TRANSFUSION TOLERTED WELL, NO ADVERSE REACTION NOTED,CONTINUES INFUSING WELL, NO ACUTE DISTRESS NOTED, VITAL SIGNS WNL, PLEASE SEE THE VITAL SIGNS CHART, WILL CONTINUE WITH CARE.
[2020-08-29 06:50] LABS: BASOPHILS % (AUTO) 0.4 % (0.0-2.0); EOSINOPHILS % (AUTO) 1.3 % (0.0-6.0); HEMATOCRIT 23 % (33-45); HEMOGLOBIN 7.9 g/dL (11.5-14.8); LYMPHOCYTES % (AUTO) 34.2 % (20.0-44.0); MEAN CORPUSCULAR HGB CONC 34 g/dl (31.0-36.0); MEAN CORPUSCULAR VOLUME 94 fL (82-100); MONOCYTES # (AUTO) 2.3 /CMM (0.1-1.30); MONOCYTES % (AUTO) 26.2 % (2.0-12.0); NEUTROPHILS # (AUTO) 3.3 /CMM (1.8-8.9); NEUTROPHILS % (AUTO) 37.9 % (43.0-81.0); RED BLOOD CELL COUNT(AUTO) 2.46 MIL/uL (4.0-5.2); WHITE BLOOD COUNT (AUTO) 8.6 K/uL (4.3-11.0)
--- NOTE | 2020-08-29 07:08 | NUR ---
RN NOTES PT. BLOOD TRANSFUSION TOLERTED WELL, NO ADVERSE REACTION NOTED CONTINUES INFUSING WELL, NO ACUTE DISTRESS NOTED, VITAL SIGNS WNL, PLEASE SEE THE VITAL SIGNS CHART, ENDORSE TO AM NURSE FOR CONTUNITY OF CARE.
[2020-08-29 07:10] LABS: PLATELET COUNT (AUTO) 13 /CMM (150-450)
--- NOTE | 2020-08-29 07:14 | NUR ---
rn notes received call from lab reporting, plt of 13. endorsed to assigned nurse and oncoming nurse to follow up for continuity of care.
[2020-08-29 07:27] LABS: CALCIUM, SERUM 6.7 mg/dL (8.5-10.1); CARBON DIOXIDE 16 mmol/L (21-32); CHLORIDE 110 mmol/L (98-107); CREATININE 2.3 mg/dL (0.6-1.3); GLUCOSE 129 mg/dL (74-106); MAGNESIUM 1.9 mg/dL (1.8-2.4); PHOSPHORUS 3.1 mg/dL (2.5-4.9); POTASSIUM 3.5 mmol/L (3.5-5.1); SODIUM SERUM 137 mmol/L (136-145); UREA NITROGEN, BLOOD 23 mg/dL (7-18)
--- NOTE | 2020-08-29 07:30 | NUR ---
SENIOR CIVIL ENGINEER OPENING NOTES Patient is resting in bed. A/O x2-3, Canadian/Kosovan-speaking, able to speak little Uzbek and make simple needs known. Breathing even and unlabored, stable on RA. On tele monitor, reading of ST, hr in the low 100's. IV line on RFA #20 intact and patent, IVF of NS running @125mls/hr. Endorsed by previous shift RN that patient currently has 1prbc infusing, monitored for any adverse reaction. Safety precautions in place: bed is locked and on lowest position, side rails x2, call light is within reach. Will continue to monitor.
[2020-08-29] MEDS ORDERED: VANCOMYCIN 0.75 GM in IV D5W 250 ML IV SCH (08:00)
--- NOTE | 2020-08-29 08:50 | NUR ---
RN NOTES BLOOD TRANSFUSION OF 1PRBC COMPLETED; VS TAKEN AND RECORDED. NO POST-TRANSFUSION ADVERSE REACTION NOTED. WILL CONTINUE TO MONITOR.
[2020-08-29 10:44] LABS: BLASTS, MANUAL % 1 % (0-0); LYMPHOCYTES % (MANUAL) 36 % (16-48); MONOCYTES % (MANUAL) 23 % (0-11.0); MYELOCYTES % 2 % (0-0); NEUTROPHILS % (MANUAL) 38 (42-76)
[2020-08-29] MEDS: IV NS 0.9% 1,000 ML IV PRN (18:24)
--- NOTE | 2020-08-29 18:53 | NUR ---
AIRPORT ELECTRICIAN CLOSING NOTES Patient is resting in bed, awake and verbally responsive. A/O x2-3, Austrian/Brazilian-speaking. Breathing even and unlabored, tolerating RA. On tele monitor, reading of ST, hr in the 100's, no cardiac distress noted. IV line on RFA #20 intact and patent, IVF of NS running @125mls/hr. Patient able to ambulate to bathroom using fww w/ assistance. Due meds given today. Safety precautions maintained: bed is locked and on lowest position, side rails x2, call light is within reach. Will endorse to [facility] shift lead RN for sin.
--- NOTE | 2020-08-29 19:39 | NUR ---
HIGHWAY WORKER OPENING NOTES PATIENT IN BED A/OX3; ARABIC SPEAKING; ABLE TO MAKE SIMPLE NEEDS KNOWN. ON ROOM AIR WITH NO SOB; TOLERATING WELL. ON EXTERNAL CARDIAC MONITORING; SINUS TACHY AND HR AT 117. NO S/S OF PAIN OR DISTRESS AT THE TIME NOTED. IV ON JORGE NS @ 125 ML/HR. SAFETY MEASURES IN PLACE: BED IS LOWEST LOCKED POSITION; BED ALARMS ON; SIDE RAILS UPX2; CALL LIGHT WITHIN EASY REACH. WILL CONTINUE TO MONITOR.
[2020-08-29] MEDS ORDERED: ACETAMINOPHEN 325 MG TABLET PO ONE ×3 (22:30→23:00)
[2020-08-29] MEDS ORDERED: diphenhydrAMINE HCL 50 MG/ML VIAL IV ONE ×3 (22:30→23:00)
[2020-08-29] MEDS ORDERED: CEFEPIME 1 GM VIAL IM SCH (22:58)
[2020-08-30] VITALS (20 sets, daily range): BP systolic 110–148; BP diastolic 54–79
--- NOTE | 2020-08-30 02:57 | NUR ---
RN NOTES: PRBC NOTED WITH ORDERS FOR BLOOD TRANSFUSION FROM DR. LAWSON. INFUSING PRBC 1 UNIT 272ML. V/S BEFORE TRANSFUSION: BP 120/ 79, P 105, RR 16, T 98.2, O2SAT 95%. NO SOB NOTED. WILL MONITOR FOR ANY A/R.
--- NOTE | 2020-08-30 03:15 | NUR ---
RN NOTES PRBC ADMINISTERING BRBC WITH NO A/R NOTED; NO N/V/D; NO RASHES. RESPIRATIONS ARE EVEN AND NONLABORED; ON ROOM AIR. NO CHANGES IN MENTAL STATUS. NO COMPLAINTS OF PAIN OR DISTRESS. NO S/S OF BLEEDING. BP 119/54, P 91, T 98.1F, RR 15. WILL CONTINUE TO MONITOR.
--- NOTE | 2020-08-30 06:28 | NUR ---
BLENDER OPERATOR OPENING NOTES PATIENT IN BED A/OX3; TAMAZIGHT SPEAKING; ABLE TO MAKE SIMPLE NEEDS KNOWN. ON ROOM AIR WITH NO SOB; TOLERATING WELL. ON EXTERNAL CARDIAC MONITORING; NORMAL SINUS AT 90 - 100'S. NO S/S OF PAIN OR DISTRESS AT THE TIME NOTED. IV ON JORGE NS @ 125 ML/HR. PRBC X1UNIT INFUSED DURING SHIFT; TOLERATED WELL, NO A/R NOTED. SAFETY MEASURES IN PLACE: BED IS LOWEST LOCKED POSITION; BED ALARMS ON; SIDE RAILS UPX2; CALL LIGHT WITHIN EASY REACH. WILL CONTINUE TO MONITOR.
[2020-08-30 07:52] LABS: BASOPHILS % (AUTO) 0.2 % (0.0-2.0); EOSINOPHILS % (AUTO) 1.5 % (0.0-6.0); HEMATOCRIT 27 % (33-45); HEMOGLOBIN 9.4 g/dL (11.5-14.8); LYMPHOCYTES # (AUTO) 2.5 /CMM (0.8-4.8); MEAN CORPUSCULAR HGB CONC 34 g/dl (31.0-36.0); MEAN CORPUSCULAR VOLUME 90 fL (82-100); MONOCYTES # (AUTO) 2.3 /CMM (0.1-1.30); NEUTROPHILS # (AUTO) 3.3 /CMM (1.8-8.9); NEUTROPHILS % (AUTO) 40.3 % (43.0-81.0); RED BLOOD CELL COUNT(AUTO) 3.06 MIL/uL (4.0-5.2); WHITE BLOOD COUNT (AUTO) 8.2 K/uL (4.3-11.0)
[2020-08-30 08:10] LABS: ALANINE AMINOTRANSFERASE 17 U/L (12-78); ALBUMIN 1.5 g/dL (3.4-5.0); ALKALINE PHOSPHATASE 45 U/L (46-116); ASPARTATE AMINOTRANSFERASE 74 U/L (15-37); BILIRUBIN,TOTAL 0.6 mg/dL (0.2-1.0); CALCIUM, SERUM 6.8 mg/dL (8.5-10.1); CARBON DIOXIDE 18 mmol/L (21-32); CHLORIDE 109 mmol/L (98-107); CREATININE 2.4 mg/dL (0.6-1.3); GLUCOSE 117 mg/dL (74-106); MAGNESIUM 1.9 mg/dL (1.8-2.4); PHOSPHORUS 3.7 mg/dL (2.5-4.9); POTASSIUM 3.7 mmol/L (3.5-5.1); SODIUM SERUM 138 mmol/L (136-145); TOTAL PROTEIN, SERUM 7.7 g/dL (6.4-8.2); UREA NITROGEN, BLOOD 27 mg/dL (7-18)
[2020-08-30 08:11] LABS: PLATELET COUNT (AUTO) 12 /CMM (150-450)
[2020-08-30 08:18] LABS: D-DIMER 4.2 mg/L(FEU (0.17-0.50)
--- NOTE | 2020-08-30 11:27 | NUR ---
TELE/RN NOTES PRE PLATELET TRANSFUSION V/S BP 133/70 P 55 RR 20 TEMP 97.2 SAO2 100% POST PLATELET V/S BP 130/74 P 103 TEMP 98 RR 20 SAO2 99%. NO PLATELET TRANSFUSION REACTION NOTED. WILL CONTINUE TO MONITOR.
[2020-08-30] MEDS: CEFEPIME 1 GM in IV D5W 50 ML IV SCH (12:28)
[2020-08-30] MEDS ORDERED: LIDOCAINE 1% INJ 50 ML MDV IJ ONE (15:00)
[2020-08-30] MEDS ORDERED: HYDROMORPHONE MDV 30 MG in IV NS 0.9% 15 ML, PCA TOTAL VOLUME 1 BAG IV PRN ×3 (15:00)
[2020-08-30] MEDS ORDERED: NALOXONE HCL 0.4 MG/ML AMPUL IV PRN (15:30)
[2020-08-30] MEDS ORDERED: ONDANSETRON HCL/PF 4 MG/2 ML VIAL IVP PRN (15:30)
[2020-08-30] MEDS ORDERED: HYDROMORPHONE 1 MG/1 ML DISP.SYRIN IV ONE (15:30)
[2020-08-30 16:07] LABS: *SPE A/G RATIO 0.4 (0.7-1.7); *SPE ALBUMIN 2.3 g/dL (2.9-4.4); *SPE ALPHA-1-GLOBULIN 0.3 g/dL (0.0-0.4); *SPE ALPHA-2-GLOBULIN 0.9 g/dL (0.4-1.0); *SPE BETA GLOBULIN 0.7 g/dL (0.7-1.3); *SPE GLOBULIN, TOTAL 5.3 g/dL (2.2-3.9); *SPE M-SPIKE 3.2 g/dL (Not Observed); *SPEGAMMA GLOBULIN 3.4 g/dL (0.4-1.8)
[2020-08-30] MEDS: VANCOMYCIN 1 GM in IV D5W 250 ML IV SCH (18:57)
[2020-08-30 19:10] LABS: BASOPHILS # (AUTO) 0.1 /CMM (0.0-0.2); BASOPHILS % (AUTO) 0.5 % (0.0-2.0); EOSINOPHILS % (AUTO) 1.1 % (0.0-6.0); HEMATOCRIT 27 % (33-45); HEMOGLOBIN 9.3 g/dL (11.5-14.8); LYMPHOCYTES # (AUTO) 3.2 /CMM (0.8-4.8); LYMPHOCYTES % (AUTO) 29.8 % (20.0-44.0); MEAN CORPUSCULAR HGB CONC 34 g/dl (31.0-36.0); MEAN CORPUSCULAR VOLUME 89 fL (82-100); MONOCYTES # (AUTO) 2.8 /CMM (0.1-1.30); MONOCYTES % (AUTO) 26.4 % (2.0-12.0); NEUTROPHILS # (AUTO) 4.5 /CMM (1.8-8.9); NEUTROPHILS % (AUTO) 42.2 % (43.0-81.0); RED BLOOD CELL COUNT(AUTO) 3.04 MIL/uL (4.0-5.2); WHITE BLOOD COUNT (AUTO) 10.7 K/uL (4.3-11.0)
[2020-08-30 19:18] LABS: PLATELET COUNT (AUTO) 37 /CMM (150-450)
--- NOTE | 2020-08-30 20:12 | NUR ---
TELE/RN CLOSING NOTES PATIENT IS ON BED ALERT AND ORIENTED X3. PATIENT IN ROOM AIR SATURATION 97%. PATIENT IN NO APPARENT RESPIRATORY DISTRESS NOTED. NO COMPLAINED OF PAIN AT THIS TIME. TELE MONITOR READING SINUS TACH 113 BPM. SEEN AND EXAMINED BY MD WITH ORDERS MADE AND CARRIED OUT. ALL DUE MEDICATIONS WAS GIVEN. IV ACCESS AT RIGHT UPPER ARM #20G WITH IV FLUID OF NS1L AT 125ML/HR ON AND INFUSING WELL. SAFETY PRECAUTIONS WAS IN PLACED. BED IN LOWEST POSITION AND LOCKED. SIDERAILS UP X2. CALL LIGHT WITHIN REACH. NO PLASMA TRANSFUSION REACTION WAS NOTED VITAL SIGN TAKEN AND RECORDED. BONE MARROW BIOPSY WAS DONE AT THE BEDSIDE BY DR. LAWSON. WILL ENDORSED TO SCOUTS FOR ELVIRA.
[2020-08-30 21:10] LABS: BAND % (MANUAL) 5 % (0.0-5.0); BLASTS, MANUAL % 1 % (0-0); EOSINOPHILS % (MANUAL) 1 % (0-4); LYMPHOCYTES % (MANUAL) 22 % (16-48); METAMYELOCYTES % 1 % (0-0); MONOCYTES % (MANUAL) 23 % (0-11.0); NEUTROPHILS % (MANUAL) 47 (42-76)
[2020-08-31] VITALS (28 sets, daily range): BP systolic 86–125; BP diastolic 45–95
[2020-08-31] MEDS: CEFEPIME 1 GM in IV D5W 50 ML IV SCH ×3 (00:35→23:48)
--- NOTE | 2020-08-31 00:46 | NUR ---
vit k missed dose medication past due ordered 08/28/19
[2020-08-31] MEDS ORDERED: LORAZEPAM INJ 2 MG/ML VIAL IV PRN (04:00)
[2020-08-31 07:27] LABS: BASOPHILS % (AUTO) 0.3 % (0.0-2.0); EOSINOPHILS % (AUTO) 0.7 % (0.0-6.0); HEMATOCRIT 25 % (33-45); HEMOGLOBIN 8.5 g/dL (11.5-14.8); LYMPHOCYTES % (AUTO) 32.8 % (20.0-44.0); MEAN CORPUSCULAR HGB CONC 35 g/dl (31.0-36.0); MEAN CORPUSCULAR VOLUME 89 fL (82-100); MONOCYTES # (AUTO) 2.3 /CMM (0.1-1.30); MONOCYTES % (AUTO) 24.7 % (2.0-12.0); NEUTROPHILS # (AUTO) 3.8 /CMM (1.8-8.9); NEUTROPHILS % (AUTO) 41.5 % (43.0-81.0); RED BLOOD CELL COUNT(AUTO) 2.75 MIL/uL (4.0-5.2); WHITE BLOOD COUNT (AUTO) 9.3 K/uL (4.3-11.0)
--- NOTE | 2020-08-31 07:30 | NUR ---
RECEIVED PT. THIS AM ALERT AND ORIENTED X2,MAINLY UPPER SORBIAN SPEAKING.VS STABLE.A LITTLE SOB.02 REAPPLIED OFTEN.02 AT 2L NC.SKIN WARM AND DRY.HOB ELEVATED.
[2020-08-31 07:34] LABS: CALCIUM, SERUM 7.4 mg/dL (8.5-10.1); CARBON DIOXIDE 16 mmol/L (21-32); CHLORIDE 107 mmol/L (98-107); CREATININE 2.3 mg/dL (0.6-1.3); GLUCOSE 143 mg/dL (74-106); MAGNESIUM 1.9 mg/dL (1.8-2.4); PHOSPHORUS 3.9 mg/dL (2.5-4.9); POTASSIUM 3.6 mmol/L (3.5-5.1); SODIUM SERUM 139 mmol/L (136-145); UREA NITROGEN, BLOOD 31 mg/dL (7-18)
[2020-08-31 08:10] LABS: PLATELET COUNT (AUTO) 23 /CMM (150-450)
--- NOTE | 2020-08-31 08:30 | NUR ---
BLASTING ENTRYMAN IN TO RM.CHECKING ON PT.CONGESTED AND SOB.02 0N AT 3L.
[2020-08-31] MEDS: IV NS 0.9% 1,000 ML IV PRN (09:11)
[2020-08-31 09:26] LABS: D-DIMER 9.55 mg/L(FEU (0.17-0.50)
--- NOTE | 2020-08-31 09:45 | NUR ---
Sia GANDHI BASTING CLEANER IN TO RM.VS TAKEN. 142/95,POX 91%,RR24.ORDERS GIVEN FOR ABG AND US OF CHEST FOR POSSIBLE PLEURAL EFF.
--- NOTE | 2020-08-31 09:50 | NUR ---
IV TURNED OFF.
[2020-08-31 10:14] LABS: ABG BASE EXCESS -12.1 mmol/L; ABG OXYGEN SATURATION 92.9 % (92.0-98.5); ABG PCO2 25.1 mmHg (35.0-45.0); ABG PH 7.319 (7.350-7.450); ABG PO2 72.7 mmHg (75.0-100.0); AaDO2 111.7 mmHg; COHb 0.1 % (0.5-1.5); MetHb 0.2 % (0.0-1.5); O2Hb 92.6 % (94.0-97.0); SITE, ABG Left Radial
--- NOTE | 2020-08-31 10:22 | NUR ---
MONITOR INDICATES V-TACH.HRATE TO 160-180 FOR FEW SECONDS.RN IN TO RM.PT. SOB.
--- NOTE | 2020-08-31 10:22 | NUR ---
BP 142/90,HR 122,POX 91%RESP. RATE 28.
--- NOTE | 2020-08-31 10:25 | NUR ---
ALL INFO SENT TO Sia FRANCO NP INCLUDING PHOTO OF RHYTHM STRIP AND ABG REPORT.
--- NOTE | 2020-08-31 10:28 | NUR ---
FACE MASK AT 6-7 L.
[2020-08-31 10:31] LABS: BAND % (MANUAL) 5 % (0.0-5.0); EOSINOPHILS % (MANUAL) 1 % (0-4); LYMPHOCYTES % (MANUAL) 42 % (16-48); MONOCYTES % (MANUAL) 3 % (0-11.0); NEUTROPHILS % (MANUAL) 49 (42-76)
--- NOTE | 2020-08-31 10:56 | NUR ---
ST RATE OF 126.
--- NOTE | 2020-08-31 10:56 | NUR ---
COVID TEST DONE WELL ULTRASOUND.
--- NOTE | 2020-08-31 10:58 | NUR ---
ST 120
--- NOTE | 2020-08-31 11:07 | NUR ---
BP 119/76,HRATE [id number] 97%.
--- NOTE | 2020-08-31 11:47 | NUR ---
ECHO BEING DONE AT THIS TIME.
--- NOTE | 2020-08-31 11:48 | NUR ---
DR. GUERRERO JUST IN TO SEE PT.
--- NOTE | 2020-08-31 12:32 | NUR ---
AT THIS TIME PT. RESTING.VS TAKEN 128/69,HRATE 116,RR 22 POX 96%.
[2020-08-31] MEDS: METOPROLOL TARTRATE 25 MG TABLET PO SCH ×2 (12:51→21:51)
[2020-08-31] MEDS: MICAFUNGIN SODIUM 100 MG in IV NS 0.9% 100 ML IV SCH (13:22)
--- NOTE | 2020-08-31 13:55 | NUR ---
TRANSFERRED VIA BED TO RM 265.REPORT TO BC FIELD.
[2020-08-31] MEDS: POTASSIUM CHLORIDE 20 MEQ TAB.PRT.SR PO SCH ×2 (14:56→16:23)
[2020-08-31] MEDS ORDERED: BUMETANIDE INJ 6 MG in IV D5W 36 ML IV ONE (15:00)
--- NOTE | 2020-08-31 15:00 | NUR ---
PT RECEIVED FROM AYDEE SoteloW RN. PT ON 6L SIMPLE MASK, O2 SAT 96%. PATIENT IS AFEBRILE AT THIS TIME. PT LFA 20 MIDLINE IS INTACT RUNNING NS AT 100. PT ON MONITOR SHOWING ST 100s. ALL SAFETY MEASURES IN PLACE. WILL CONTINUE TO MONITOR
--- NOTE | 2020-08-31 15:01 | NUR ---
Received order for US Guided Thoracentesis, but advised RN that her platelets are too low for it to be done. Plats need to be at least 50. Will notify tech tomorrow to check on plat count.
[2020-08-31 15:36] LABS: THYROID STIMULATING HORMONE 0.406 uIU/mL (0.358-3.74)
--- NOTE | 2020-08-31 16:00 | NUR ---
PLATELETS 25, JEFFREY FRANCO ORDERS 1U PLATELET. MD ROCKWELL REQUESTS THE PLATELETS TO BE TRANSFUSED PRIOR TO THORACENTESIS TOMORROW. JEFFREY FRANCO AWARE AND OK TO WAIT TO TRANSFUSE PLATELETS. BLOOD BANK NOTIFIED
[2020-08-31] MEDS: ACYCLOVIR 200 MG CAPSULE PO SCH (16:22)
[2020-08-31] MEDS ORDERED: ACETAMINOPHEN 325 MG TABLET PO ONE (17:00)
[2020-08-31] MEDS ORDERED: diphenhydrAMINE HCL 50 MG/ML VIAL IV ONE (17:00)
[2020-08-31 18:55] LABS: D-DIMER 9.02 mg/L(FEU (0.17-0.50)
--- NOTE | 2020-08-31 19:30 | NUR ---
MD LAWSON ORDERS 2 U FFP AND 1 U PLASMA, RN NOTIFIED MD LAWSON OF JEFFREY FRANCO'S DUPLICATE ORDER FOR 1U PLATELET , AND MD LAWSON CLARIFIES THAT A TOTAL OF 2 U FFP AND 1 U PLATELET TO BE GIVEN STAT. MD LAWSON AWARE OF MD ROCKWELL ORIGINAL REQUEST TO TRANSFUSE PLATELET BEFORE THORACENTESIS TOMORROW ON 09/01.
--- NOTE | 2020-08-31 19:35 | NUR ---
RN/ICU- SPOKE TO DR. LAWSON BY PHONE, SPECIFICALLY ORDERED 2UNITS FFP AND I UNIT PLATELET TO BE GIVEN TO NIGHT, NOT TOMORROW.WILL NOTIFY BLOOD BANK KAMERON.
--- NOTE | 2020-08-31 20:00 | NUR ---
RN/ICU-PT. OFF AND ON RESTLESS, CONFUSED, ORIENTED TO SELF ONLY. BRITISH SPEAKING. RN ALBAN REQUESTED TO TALK TO PT. IN BRITISH, SAME RN STATED, PT. CONFUSED, DISORIENTED, WANTS TO GET OUT OF BED, WANTS TO URINATE, BED WINTERS SERVED, NO URINE. PT. REMAINS CONFUSED. PT. ON BUMEX DRIP X6 HRS. ONGOING. DR. FONG WAS PAGED. FOR ORDERS
--- NOTE | 2020-08-31 21:30 | NUR ---
RN/ICU- PT. HAS ONE IV LINE. NEW IV G.20 INSERTED VIA LEFT HAND X1 STICK FOR BLOOD TRANSFUSION.
[2020-08-31] MEDS ORDERED: diphenhydrAMINE HCL 50 MG/ML VIAL ONE (21:50)
--- NOTE | 2020-08-31 22:39 | NUR ---
RN/ICU- SPOKE TO RAYMUNDO FROM LAB, STATED THAT THE GERMAN RED CROSS DIRECTOR DID NOT APPROVE PLATELET TRANSFUSION BECAUSE PT. IS NOT ACTIVELY BLEEDING. WILL NOTIFY DR. LAWSON. FOR CLARIFICATION OF ORDER. PT. NEEDS TO UNITS OF FFP AND 2 UNITS OF PLATELETS TO BE TRANSFUSED KAMERON PRIOR TO THORACENTESIS TOMORROW.
--- NOTE | 2020-08-31 23:21 | NUR ---
RN/ICU- 2 UNITS FFP AVAILABLE, WILL TRANSFUSE STARTING RIGHT NOW
[2020-09-01] VITALS (34 sets, daily range): BP systolic 75–121; BP diastolic 42–92
--- NOTE | 2020-09-01 | NUR ---
RN/ICU-REMAINS OFF AND ON AGITATED, TRYING TO GET OUT OF BED.W/ BED ALARMS ON. BILATERAL SOFT WRIST RESTRAINTS ORDER OBTAINED FROM DR. STONE, AND INITIATED PER PROTOCOL.
--- NOTE | 2020-09-01 03:10 | NUR ---
RN/ICU-FOR THORACENTESIS TODAY.WITH CONSENT SIGNED BY PT. STILL WAITING FOR 2 UNITS PLATELET TO BE AVAILABLE FOR TRANSFUSION.
[2020-09-01] MEDS: VANCOMYCIN 1 GM in IV D5W 250 ML IV SCH (05:23)
[2020-09-01 05:25] LABS: BASOPHILS # (AUTO) 0.1 /CMM (0.0-0.2); EOSINOPHILS % (AUTO) 0.2 % (0.0-6.0); HEMATOCRIT 27 % (33-45); HEMOGLOBIN 9.1 g/dL (11.5-14.8); LYMPHOCYTES # (AUTO) 3.3 /CMM (0.8-4.8); LYMPHOCYTES % (AUTO) 28.8 % (20.0-44.0); MEAN CORPUSCULAR HGB CONC 34 g/dl (31.0-36.0); MEAN CORPUSCULAR VOLUME 89 fL (82-100); MONOCYTES # (AUTO) 1.9 /CMM (0.1-1.30); MONOCYTES % (AUTO) 16.8 % (2.0-12.0); NEUTROPHILS # (AUTO) 6.1 /CMM (1.8-8.9); NEUTROPHILS % (AUTO) 53.2 % (43.0-81.0); RED BLOOD CELL COUNT(AUTO) 2.99 MIL/uL (4.0-5.2); WHITE BLOOD COUNT (AUTO) 11.5 K/uL (4.3-11.0)
[2020-09-01 05:45] LABS: ALANINE AMINOTRANSFERASE 22 U/L (12-78); ALKALINE PHOSPHATASE 65 U/L (46-116); ASPARTATE AMINOTRANSFERASE 60 U/L (15-37); CALCIUM, SERUM 7.4 mg/dL (8.5-10.1); CARBON DIOXIDE 17 mmol/L (21-32); CHLORIDE 109 mmol/L (98-107); CREATININE 2.8 mg/dL (0.6-1.3); GLUCOSE 131 mg/dL (74-106); PHOSPHORUS 4.9 mg/dL (2.5-4.9); POTASSIUM 4.2 mmol/L (3.5-5.1); SODIUM SERUM 141 mmol/L (136-145); TOTAL PROTEIN, SERUM 8.2 g/dL (6.4-8.2); UREA NITROGEN, BLOOD 49 mg/dL (7-18)
[2020-09-01 05:55] LABS: D-DIMER 7.79 mg/L(FEU (0.17-0.50)
[2020-09-01 06:21] LABS: PLATELET COUNT (AUTO) 16 /CMM (150-450)
[2020-09-01] MEDS ORDERED: BUMETANIDE INJ 16 MG in IV NS 0.9% 16 ML IV ONE (07:30)
[2020-09-01] MEDS: METOPROLOL TARTRATE 25 MG TABLET PO SCH ×2 (08:29→21:00)
[2020-09-01] MEDS: ALLOPURINOL 100 MG TABLET PO SCH (08:31)
[2020-09-01] MEDS: ACYCLOVIR 200 MG CAPSULE PO SCH ×2 (08:31→18:00)
--- NOTE | 2020-09-01 12:46 | NUR ---
2 UNITS PLATELETS GIVEN ADMINISTERED PER MD LAWSON. 2 UNITS FFP PREVIOUSLY ADMIN BY PREVIOUS SHIFT. RADIOLOGIST NOTIFIED OF BLOOD PRODUCTS ADMIN, OK WITH CONTINUING WITH THORACENTESIS DESPITE NEW STAT CBC AND PT/INR NOT DRAWN YET. MOST RECENT INR AFTER THE 2U FFP WAS 2.32. LAST PLT PRIOR TO 2U PLT TRANSFUSION WAS 16. RADIOLOGIST AWARE OF LAB VALUES.
[2020-09-01] MEDS: CEFEPIME 1 GM in IV D5W 50 ML IV SCH ×2 (13:26→23:12)
[2020-09-01] MEDS: MICAFUNGIN SODIUM 100 MG in IV NS 0.9% 100 ML IV SCH (14:18)
--- NOTE | 2020-09-01 14:30 | NUR ---
THORACENTESIS PERFORMED AT BEDSIDE AT 1300 BY RADIOLOGIST, 1.3 LITERS REMOVED FROM RIGHT LUNGS. PER FOLLOW-UP CXR, RIGHT LUNG PLEURAL EFFUSION RESOLVED. PLEURAL FLUID SAMPLES SENT TO LAB. PATIENT REMAINS ON SIMPLE MASK 6L
[2020-09-01 15:04] LABS: BASOPHILS % (AUTO) 0.4 % (0.0-2.0); EOSINOPHILS % (AUTO) 0.2 % (0.0-6.0); HEMATOCRIT 28 % (33-45); HEMOGLOBIN 9.3 g/dL (11.5-14.8); LYMPHOCYTES # (AUTO) 2.7 /CMM (0.8-4.8); LYMPHOCYTES % (AUTO) 25.8 % (20.0-44.0); MEAN CORPUSCULAR HGB CONC 34 g/dl (31.0-36.0); MEAN CORPUSCULAR VOLUME 90 fL (82-100); MONOCYTES # (AUTO) 1.4 /CMM (0.1-1.30); NEUTROPHILS # (AUTO) 6.4 /CMM (1.8-8.9); NEUTROPHILS % (AUTO) 60.6 % (43.0-81.0); PLATELET COUNT (AUTO) 92 /CMM (150-450); RED BLOOD CELL COUNT(AUTO) 3.09 MIL/uL (4.0-5.2); WHITE BLOOD COUNT (AUTO) 10.5 K/uL (4.3-11.0)
[2020-09-01 17:11] LABS: BAND % (MANUAL) 6 % (0.0-5.0); EOSINOPHILS % (MANUAL) 1 % (0-4); LYMPHOCYTES % (MANUAL) 26 % (16-48); METAMYELOCYTES % 1 % (0-0); MONOCYTES % (MANUAL) 11 % (0-11.0); NEUTROPHILS % (MANUAL) 55 (42-76)
--- NOTE | 2020-09-01 19:30 | NUR ---
PT ON BED SLEEPING, CONFUSED, CURRENTLY ON 6L O2 VIA NC SPO2 97% NO SIGN OF DISTRESS OR PAIN NOTED TELE MONITOR READS SINUS TACHY 110'SLFA # 20AND LEFT HAND #20 PATENT AND FLUSHED WITH ONGOING NS TKO INFUSING WELL, HAVE BILATERAL WRIST RESTRAINT CIRCULATION WAS CHECKED BED ON LOWEST POSITION AND LOCKED SIDE RAILS UP X2 CALL LIGHT WITHIN REACH WILL CONT TO MONITOR
--- NOTE | 2020-09-01 22:55 | NUR ---
HEARD PT MOANING GO TO HER ROOM AND SEE HER UNCOMFORTABLE AND GRIMACING REPOSITION PT AND GIVE NORCO PO TOLERATED BUT HER HR GOES UP TO 220, WILL CONT TO MONITOR
--- NOTE | 2020-09-01 23:15 | NUR ---
STILL HR OF THE PT ON REPORTED IT TO CHARGE NURSE, AND ORDER STAT EKG, EKG RESULT RELAYED TO DR. DARIEN VALLADARES [employer]ARDEN
[2020-09-01] MEDS: HYDROCODONE/APAP 5/325MG TABLET PO PRN (23:17)
--- NOTE | 2020-09-01 23:35 | NUR ---
DR LEDEZMA MADE AN ORDER FOR ADENOSINE 6MG IV STAT NOW NOTED AND CARRIED OUT PT HR 180-220
[2020-09-01] MEDS ORDERED: ADENOSINE 6 MG/2 ML VIAL IVP STA ×2 (23:36→23:56)
--- NOTE | 2020-09-01 23:42 | NUR ---
ADENOSINE 6MG IV GIVE IV PER MD ORDER HR JUST GO DOWN TO 122 BUT AFTER A SECOND IT GOES UP AGAIN TO 180 WILL CONT TO MONITOR
--- NOTE | 2020-09-01 23:55 | NUR ---
STILL HR ON 180-220 DR LEDEZMA MADE AWARE AND HE ORDER ANOTHER DOSE OF ADENOSINE 6MG IV STAT X1 NOW NOTED AND CARRIED OUT
[2020-09-02] VITALS (82 sets, daily range): BP systolic 67–130; BP diastolic 46–88
--- NOTE | 2020-09-02 00:04 | NUR ---
ADENOSINE 6MG IV GIVEN NOW HR GOES DOWN UP TO 59 THEN GOES BACK TO 110 WILL CONT TO MONITOR THE PT
--- NOTE | 2020-09-02 00:29 | NUR ---
BEDSIDE MONITOR READS SINUS TACHY 110-120 SPO2 98% NO SIGN AND SYMPTOMS OF DISTRESS WILL CONT TO MONITOR THE PT
--- NOTE | 2020-09-02 02:37 | NUR ---
BEDSIDE MONITOR READS SINUS TACHY 100-110 SPO2 99% PT IS ASLEEP EASY TO WAKE UP WILL CONT TO MONITOR
--- NOTE | 2020-09-02 03:58 | NUR ---
PT AGAIN GO TO SVT HR 180-200, DR DARIEN MELENDEZ WAS PAGE WILL CONT TO MONITOR THE PT
--- NOTE | 2020-09-02 04:15 | NUR ---
RECEIVED ORDER FROM DR. LEDEZMA TO GIVE ADENOSINE 12MG IV X1 STAT NOW NOTED AND CARRIED OUT CURRENT HR OF PT IS 200 BP 88/53 SPO2 98% WILL CONT TO MONITOR
[2020-09-02] MEDS ORDERED: ADENOSINE 6 MG/2 ML VIAL IVP STA (04:23)
[2020-09-02 04:31] LABS: BASOPHILS % (AUTO) 0.3 % (0.0-2.0); EOSINOPHILS % (AUTO) 0.2 % (0.0-6.0); HEMATOCRIT 25 % (33-45); HEMOGLOBIN 8.9 g/dL (11.5-14.8); LYMPHOCYTES # (AUTO) 2.9 /CMM (0.8-4.8); LYMPHOCYTES % (AUTO) 31.5 % (20.0-44.0); MEAN CORPUSCULAR HGB CONC 35 g/dl (31.0-36.0); MEAN CORPUSCULAR VOLUME 89 fL (82-100); MONOCYTES # (AUTO) 1.3 /CMM (0.1-1.30); MONOCYTES % (AUTO) 13.8 % (2.0-12.0); NEUTROPHILS # (AUTO) 5.1 /CMM (1.8-8.9); NEUTROPHILS % (AUTO) 54.2 % (43.0-81.0); PLATELET COUNT (AUTO) 57 /CMM (150-450); RED BLOOD CELL COUNT(AUTO) 2.86 MIL/uL (4.0-5.2); WHITE BLOOD COUNT (AUTO) 9.3 K/uL (4.3-11.0)
[2020-09-02] MEDS ORDERED: ADENOSINE 6 MG/2 ML VIAL ONE (04:36)
--- NOTE | 2020-09-02 04:45 | NUR ---
ADENOSINE 12MG IV GIVEN IVP, LOWEST HR NOTED IS 32 BUT AFTER A WHILE IT GOES UP TO 180'S WILL MONITOR THE PT
[2020-09-02 04:46] LABS: D-DIMER 7.29 mg/L(FEU (0.17-0.50)
[2020-09-02 04:55] LABS: ALANINE AMINOTRANSFERASE 16 U/L (12-78); ALBUMIN 1.6 g/dL (3.4-5.0); ALKALINE PHOSPHATASE 60 U/L (46-116); ASPARTATE AMINOTRANSFERASE 41 U/L (15-37); BILIRUBIN,TOTAL 0.8 mg/dL (0.2-1.0); CALCIUM, SERUM 6.9 mg/dL (8.5-10.1); CARBON DIOXIDE 20 mmol/L (21-32); CHLORIDE 110 mmol/L (98-107); CREATININE 3.3 mg/dL (0.6-1.3); GLUCOSE 155 mg/dL (74-106); MAGNESIUM 1.8 mg/dL (1.8-2.4); PHOSPHORUS 5.4 mg/dL (2.5-4.9); POTASSIUM 3.4 mmol/L (3.5-5.1); SODIUM SERUM 144 mmol/L (136-145); TOTAL PROTEIN, SERUM 7.4 g/dL (6.4-8.2); UREA NITROGEN, BLOOD 70 mg/dL (7-18)
[2020-09-02 05:09] LABS: EOSINOPHILS % (MANUAL) 1 % (0-4); LYMPHOCYTES % (MANUAL) 33 % (16-48); MONOCYTES % (MANUAL) 14 % (0-11.0); NEUTROPHILS % (MANUAL) 52 (42-76)
[2020-09-02] MEDS ORDERED: PHENYLEPHRINE 10 MG/ML VIAL ONE (05:18)
[2020-09-02] MEDS ORDERED: METOPROLOL TARTRATE INJ 5 MG/5 ML AMPUL IVP PRN (05:30)
[2020-09-02] MEDS: PHENYLEPHRINE 50 MG in IV NS 0.9% 245 ML IV PRN ×2 (05:31→20:15)
--- NOTE | 2020-09-02 05:33 | NUR ---
WHILE STARTING THE NEOSYNEPHRINE I NOTICE THAT THE HR OF THE PT GOES BACK TO 100''S BUT HER BP STILL LOW 83/48 SPO2 100% WILL CONT TO MONITOR
--- NOTE | 2020-09-02 07:10 | NUR ---
PT ON BED SLEEPING EASY TO WAKE UP STILL SINUS TACHY HR 118, SPO2 100% ON O2 6L VIA NC, ALL NEEDS ATTENDED BED ON LOWEST POSITION AND LOCKED SIDE RAIL UP X2 CALL LIGHT WITHIN REACH WILL ENDORSED TO AM SHIFT NURSE
--- NOTE | 2020-09-02 07:30 | NUR ---
PT RECEIVED IN BED 6L SIMPLE MASK. PT OW [id number] PT ALERT AND ORIENTED X 2/3 VATICAN CITIZEN SPEAKING, DROWSY. PT ON MONITOR SHOWING S-TACH 100-110, PREVIOUS RN REPORTS 2 EPISODES OF SVT IN 200s, WITH ADENOSINE GIVEN 3X: 6 MG, 6 MG, 12 MG. PT ON OMER 0.5 MCG. ALL IV SITES INTACT AND NO SIGNS OF INFILTRATION. MIDLINE ORDERED. ALL SAFETY MEASURES IN PLACE. WILL CONTINUE TO MONITOR CLOSELY
[2020-09-02] MEDS: AMIODARONE HCL 200 MG TABLET PO SCH ×3 (09:11→17:17)
[2020-09-02] MEDS: ACYCLOVIR 200 MG CAPSULE PO SCH ×2 (09:11→17:30)
[2020-09-02] MEDS: METOPROLOL TARTRATE 25 MG TABLET PO SCH ×2 (09:11→21:54)
[2020-09-02] MEDS: ALLOPURINOL 100 MG TABLET PO SCH (09:12)
[2020-09-02] MEDS ORDERED: diphenhydrAMINE HCL 50 MG/ML VIAL IV ONE ×2 (11:00→17:30)
[2020-09-02] MEDS ORDERED: ACETAMINOPHEN 325 MG TABLET PO ONE ×2 (11:00→17:30)
[2020-09-02] MEDS ORDERED: POTASSIUM CHLORIDE 20 MEQ TAB.PRT.SR PO ONE (12:30)
[2020-09-02] MEDS: CEFEPIME 1 GM in IV D5W 50 ML IV SCH (12:49)
--- NOTE | 2020-09-02 12:58 | NUR ---
MD LAWSON ORDERS 2 U FFP
--- NOTE | 2020-09-02 14:08 | NUR ---
ORDERS RECEIVED TO START TUBE FEEDING THROUGH NGT. HOWEVER, PT IS ON CONTINOUS BIPAP, UNABLE TO TOLERATE BIPAP MASK OFF, O2 SAT CURRENTLY 89%, BIBPAP SETTINGS INCREASED TO 25/10, 100% FIO2. WILL CONTINUE TO ASSESS IF PT ABLE TO TOLERATE MASK OFF FOR INSERTION AND FEEDINGS Addendum: 09/02/20 at 1411 by LORI DELCID RN WRONG PATIENT: DISREGARD NOTE
[2020-09-02] MEDS: MICAFUNGIN SODIUM 100 MG in IV NS 0.9% 100 ML IV SCH (14:15)
[2020-09-02] MEDS: VANCOMYCIN 1 GM in IV D5W 250 ML IV SCH (17:30)
--- NOTE | 2020-09-02 19:10 | NUR ---
RN NOTE RECEIVED PT AWAKE AND ALERT/ORIENTED X 1-2 IN BED IN SEMI FOLWER'S POSITION, CURRENTLY ON 2L OF O2 VIA NC. RESPIRATIONS EVEN AND UNLABORED, PT DENIES PAIN OR DISCOMFORT, VITAL SIGNS STABLE VIA BEDSIDE MONITOR, SR/ST ON THE ATHLETICS DIRECTOR, IV LINES PATENT AND FLUSHED WITHOUT COMPLICATIONS NOTED AT SITES, OMER RUNNING ORDERED, PENDING ADMINISTRATION OF FFP ORDERED, BUENO CATHETER PATENT AND IN PLACE DRAINING CLEAR YELLOW URINE, PLAN OF CARE DISCUSSED, SAFETY MEASURES IN PLACE PER PROTOCOL, BED ALARM ON, BED LOCKED AND IN LOW POSITION, SIDE RAILS UP X 3, CALL LIGHT WITHIN REACH, WILL MONITOR PATIENT.
[2020-09-03] VITALS (80 sets, daily range): BP systolic 99–140; BP diastolic 50–98
--- NOTE | 2020-09-03 01:01 | NUR ---
RN NOTE S//P INFUSION OF 2 UNITS OF FFP, VITAL SIGNS STABLE, NO ADVERSE REACTIONS NOTED, WILL CONTINUE TO MONITOR PATIENT.
[2020-09-03] MEDS: CEFEPIME 1 GM in IV D5W 50 ML IV SCH ×2 (01:37→11:24)
--- NOTE | 2020-09-03 04:00 | NUR ---
RN NOTE COMPLETE BED BATH AND LINEN CHANGE COMPLETED, PT TOLERATED WELL, VITAL SIGNS STABLE VIA BEDSIDE MONITOR, WILL CONTINUE TO MONITOR PATIENT.
[2020-09-03 05:20] LABS: BASOPHILS % (AUTO) 0.4 % (0.0-2.0); EOSINOPHILS % (AUTO) 0.8 % (0.0-6.0); HEMATOCRIT 25 % (33-45); HEMOGLOBIN 8.5 g/dL (11.5-14.8); LYMPHOCYTES # (AUTO) 3.1 /CMM (0.8-4.8); LYMPHOCYTES % (AUTO) 33.4 % (20.0-44.0); MEAN CORPUSCULAR HGB CONC 34 g/dl (31.0-36.0); MEAN CORPUSCULAR VOLUME 89 fL (82-100); MONOCYTES % (AUTO) 11.2 % (2.0-12.0); NEUTROPHILS # (AUTO) 5.1 /CMM (1.8-8.9); NEUTROPHILS % (AUTO) 54.2 % (43.0-81.0); RED BLOOD CELL COUNT(AUTO) 2.79 MIL/uL (4.0-5.2); WHITE BLOOD COUNT (AUTO) 9.3 K/uL (4.3-11.0)
[2020-09-03 05:29] LABS: PLATELET COUNT (AUTO) 33 /CMM (150-450)
[2020-09-03 05:49] LABS: CALCIUM, SERUM 7.1 mg/dL (8.5-10.1); CARBON DIOXIDE 21 mmol/L (21-32); CHLORIDE 110 mmol/L (98-107); CREATININE 3.5 mg/dL (0.6-1.3); GLUCOSE 149 mg/dL (74-106); MAGNESIUM 1.9 mg/dL (1.8-2.4); PHOSPHORUS 4.5 mg/dL (2.5-4.9); POTASSIUM 3.1 mmol/L (3.5-5.1); SODIUM SERUM 147 mmol/L (136-145)
[2020-09-03 06:04] LABS: UREA NITROGEN, BLOOD 81 mg/dL (7-18)
[2020-09-03 06:50] LABS: D-DIMER 8.2 mg/L(FEU (0.17-0.50)
--- NOTE | 2020-09-03 07:20 | NUR ---
RN NOTE PT REMAINS AWAKE AND ALERT/ORIENTED X 1-2 IN BED IN SEMI FOLWER'S POSITION, CURRENTLY ON 2L OF O2 VIA NC. RESPIRATIONS EVEN AND UNLABORED, PT DENIES PAIN OR DISCOMFORT, VITAL SIGNS STABLE VIA BEDSIDE MONITOR, SR/ST ON THE CODING SPECIALIST, IV LINES PATENT WITHOUT COMPLICATIONS NOTED AT SITES, OMER RUNNING ORDERED, BUENO CATHETER PATENT AND IN PLACE DRAINING CLEAR YELLOW URINE, S/P INFUSION OF 2 UNITS FFP, NO REACTIONS NOTED, SAFETY MEASURES IN PLACE PER PROTOCOL, BED ALARM ON, BED LOCKED AND IN LOW POSITION, SIDE RAILS UP X 3, CALL LIGHT WITHIN REACH, ENDORSED TO MORNING RN.
--- NOTE | 2020-09-03 08:51 | NUR ---
received pt from [facility] [place], alert, non communicative, does not follow commands, SR, ST, sat well in 3L NC, eats very little, f/c good output, v/s stable, no pain, pt turns and repositions by herself.
[2020-09-03] MEDS: METOPROLOL TARTRATE 25 MG TABLET PO SCH ×2 (09:00→21:49)
[2020-09-03] MEDS: AMIODARONE HCL 200 MG TABLET PO SCH ×3 (09:34→17:00)
[2020-09-03] MEDS: ACYCLOVIR 200 MG CAPSULE PO SCH ×2 (09:34→17:00)
--- NOTE | 2020-09-03 10:06 | NUR ---
WOUND CARE CONSULT: PT PRESENTS WITH INTACT SKIN. BUENO CATH NOTED. RECOMMENDATIONS MADE FOR SKIN PROTECTION. DISCUSSED WITH NURSING STAFF. PT IS ON DUFFIELD ISOFLEX LOW AIRLOSS BED. MD IN AGREEMENT WITH PLAN OF CARE.
[2020-09-03 10:14] LABS: ALBUMIN 1.9 g/dL (3.4-5.0); BILIRUBIN,DIRECT 0.4 mg/dL (0.0-0.2); BILIRUBIN,TOTAL 1.1 mg/dL (0.2-1.0)
[2020-09-03 11:21] LABS: BAND % (MANUAL) 2 % (0.0-5.0); LYMPHOCYTES % (MANUAL) 21 % (16-48); MONOCYTES % (MANUAL) 8 % (0-11.0); NEUTROPHILS % (MANUAL) 69 (42-76)
[2020-09-03] MEDS ORDERED: diphenhydrAMINE HCL 50 MG/ML VIAL IV ONE (12:00)
[2020-09-03] MEDS ORDERED: ACETAMINOPHEN 650 MG/SUPP.RECT RC ONE (12:30)
--- NOTE | 2020-09-03 12:49 | NUR ---
pt is unable to swallow, since platelets are low insertion of NG tube will be postponed until after transfusion, Dr Tavarez and Dr Pritchard are aware.
[2020-09-03] MEDS: MICAFUNGIN SODIUM 100 MG in IV NS 0.9% 100 ML IV SCH (13:06)
--- NOTE | 2020-09-03 17:11 | NUR ---
pt is resting in the bed, alert, confused, does not follow commands, SR, sat well on 2L NC, v/s stable, no pain, pt cleaned and changed.
[2020-09-04] VITALS (26 sets, daily range): BP systolic 116–137; BP diastolic 59–88
[2020-09-04] MEDS: CEFEPIME 1 GM in IV D5W 50 ML IV SCH ×2 (00:08→13:33)
[2020-09-04] MEDS: VANCOMYCIN 1 GM in IV D5W 250 ML IV SCH (05:14)
--- NOTE | 2020-09-04 05:45 | NUR ---
ICU/HEAD CONCIERGE LAB WAS CALLED DUE TO UNABLE TO GET BLOOD DRAW ON THE MIDLINE. LAB IS NEEDED TO DRAW PERIPHERAL. THERE IS A VANCO TROUGH THAT IS DUE AT 0500. LAB SAID THEY WILL COME DRAW THIS PERIPHERAL.
--- NOTE | 2020-09-04 06:25 | NUR ---
ICU/POWER CUTTING MACHINE OPERATOR LAB WAS CALLED A SECOND TIME TO DRAW AM LABS PLUS VANCO TROUGH. VANCO WAS DUE AT 0600 TROUGH WAS DUE AT 0500. UNABLE TO GET BLOOD FROM THE MIDLINE.
--- NOTE | 2020-09-04 07:30 | NUR ---
ICU/AURICULOTHERAPIST LAB CALLED A THIRD TIME ABOUT MORNING LAB DRAW AND ALSO 0500 VANCO TROUGH. AT THIS TIME PASSED ON TO THE DAY NURSE TO WAIT FOR THE VANCO TROUGH THAT WAS SUPPOSED TO BE DONE AT 0500 IN ADDITION TO MORNING LABS.
--- NOTE | 2020-09-04 07:30 | NUR ---
DURABILITY ENGINEER OPENING NOTE PT RESTING IN BED COMFORTABLY ON NC 2LPM, SPO2 OF 99%, NO SIGNS OF RESP DISTRESS OR SOB, BREATHING EVEN AND UNLABORED. PT IS CONFUSED, A/Ox1. PT HAS CALOS MIDLINE, PATENT, FLUSHED AND SL WITH NO SIGNS OF INFECTION OR INFILTRATION. PT HAS BILATERAL UPPER EXTREMITY BRUISING. PT HAS BUENO CATH DRAINING CLEAR ALVARO URINE TO GRAVITY. PT IS NPO, ASPIRATION RISK. WILL CONTINUE TO MONITOR. Addendum: 09/04/20 at 1208 by DEYA ADAMS RN ALL PT SAFETY PRECAUTIONS IN PLACE
[2020-09-04 08:33] LABS: BASOPHILS % (AUTO) 0.4 % (0.0-2.0); EOSINOPHILS % (AUTO) 0.5 % (0.0-6.0); HEMATOCRIT 25 % (33-45); HEMOGLOBIN 8.4 g/dL (11.5-14.8); LYMPHOCYTES # (AUTO) 2.9 /CMM (0.8-4.8); MEAN CORPUSCULAR HGB CONC 34 g/dl (31.0-36.0); MEAN CORPUSCULAR VOLUME 90 fL (82-100); MONOCYTES % (AUTO) 11.5 % (2.0-12.0); NEUTROPHILS # (AUTO) 4.5 /CMM (1.8-8.9); NEUTROPHILS % (AUTO) 53.6 % (43.0-81.0); RED BLOOD CELL COUNT(AUTO) 2.79 MIL/uL (4.0-5.2); WHITE BLOOD COUNT (AUTO) 8.4 K/uL (4.3-11.0)
[2020-09-04 08:46] LABS: PLATELET COUNT (AUTO) 17 /CMM (150-450)
[2020-09-04] MEDS: METOPROLOL TARTRATE 25 MG TABLET PO SCH ×2 (09:00→21:00)
[2020-09-04] MEDS: AMIODARONE HCL 200 MG TABLET PO SCH ×3 (09:00→17:00)
[2020-09-04] MEDS: ACYCLOVIR 200 MG CAPSULE PO SCH ×2 (09:00→17:00)
--- NOTE | 2020-09-04 09:13 | NUR ---
RN NOTE HOLDING PO MEDS. PT IS CONFUSED AND AN ASPIRATION RISK
[2020-09-04 10:14] LABS: D-DIMER 10.96 mg/L(FEU (0.17-0.50)
--- NOTE | 2020-09-04 10:30 | NUR ---
RN NOTE PT TOLERATED FFP TRANSFUSION WELL
--- NOTE | 2020-09-04 11:46 | NUR ---
DAIRY SCIENTIST TRANSFER NOTE PT BEING TRANSFERRED TO TELE ROOM 304. REPORT GIVEN TO FRANCO. PT IN STABLE CONDITION ON NC 2LPM SPO2 OF 99%. NO SIGNS OF RESP DISTRESS OR SOB. PT CURRENTLY BEING INFUSED PLT, TOLERATING WELL. ALL PT SAFETY PRECAUTIONS IN PLACE.
--- NOTE | 2020-09-04 12:00 | NUR ---
RN NOTES RECEIVED PT. WITH ONGOING PLT TRANSFUSION. VITAL SIGNS BP 122/74 DC 103 RR 20 SA02 95%. ON NPO DIET. IV SITE CALOS MIDLINE. BUENO CATH DRAINING IN YELLOW URINE. WILL CONTINUE TO MONITOR.
[2020-09-04 12:58] LABS: LYMPHOCYTES % (MANUAL) 34 % (16-48); MONOCYTES % (MANUAL) 11 % (0-11.0); MYELOCYTES % 2 % (0-0); NEUTROPHILS % (MANUAL) 53 (42-76)
[2020-09-04 13:59] LABS: CALCIUM, SERUM 7.9 mg/dL (8.5-10.1); CARBON DIOXIDE 20 mmol/L (21-32); CHLORIDE 115 mmol/L (98-107); CREATININE 3.8 mg/dL (0.6-1.3); GLUCOSE 167 mg/dL (74-106); POTASSIUM 3.2 mmol/L (3.5-5.1); SODIUM SERUM 153 mmol/L (136-145)
[2020-09-04 14:32] LABS: UREA NITROGEN, BLOOD 90 mg/dL (7-18)
[2020-09-04 15:01] LABS: MAGNESIUM 2.2 mg/dL (1.8-2.4); PHOSPHORUS 5.1 mg/dL (2.5-4.9)
[2020-09-04] MEDS: MICAFUNGIN SODIUM 100 MG in IV NS 0.9% 100 ML IV SCH (15:24)
--- NOTE | 2020-09-04 17:55 | NUR ---
RN NOTES HELD IV VANCO. VANCOMYCIN THROUGH LEVEL WAS 32.
--- NOTE | 2020-09-04 18:27 | NUR ---
RN NOTES PLATELET LEVEL CT AFTER PLT TRANSFUSION WAS 48. INFORMED DR. LAWSON AND HE ORDERED ANOTHER 1 UNIT OF PLATELET FOR TODAY 09/04.
--- NOTE | 2020-09-04 18:38 | NUR ---
CERTIFICATION OFFICER CLOSING NOTES PATIENT IN BED. A/O X1. AFEBRILE. NO S/SX OF RESPIRATORY DISTRESS. NC O2 2L/MIN. SA02 96-97%. IV SITE CALOS MIDLINE #20 G. BUENO CATH DRAINING IN YELLOW URINE. SAFETY MEASURES MAINTAINED. BED IN LOWEST POSITION, LOCKED. SIDE RAILS UP X3. CALL LIGHT WITHIN REACH. WILL ENDORSE TO OIL REFINERY OPERATOR NEXT PLT TRANSFUSION AND ELVIRA.
--- NOTE | 2020-09-04 20:00 | NUR ---
BC MARQUEZ HELD PATIENT IS LETHARGIC. WILL CONTINUE TO MONITOR Addendum: 09/06/20 at 0002 by CAPRICE ROJAS RN 09/05/20
[2020-09-04] MEDS: IV 1/2NS 1000 ML 1,000 ML IV PRN (20:38)
--- NOTE | 2020-09-04 20:52 | NUR ---
MS/TELE/RN DURING INITIAL SHIFT ASSESSMENT, RECEIVED WAS IN BED AWAKE, NOT VERBALLY RESPONSIVE, NO SIGNS OF DISTRESS NOTED, COMFORTABLE, FALL PRECAUTIONS PER PROTOCOL, WILL MONITOR.
[2020-09-04] MEDS ORDERED: PHYTONADIONE INJ 10 MG/1 ML AMPUL SQ ONE ×2 (21:00→23:45)
[2020-09-05] VITALS (10 sets, daily range): BP systolic 119–138; BP diastolic 58–76
[2020-09-05] MEDS: CEFEPIME 1 GM in IV D5W 50 ML IV SCH ×2 (00:16→13:21)
--- NOTE | 2020-09-05 07:39 | NUR ---
MS/TELE/RN PATIENT IS AWAKE, NO DISTRESS NOTED, ALL NEEDS ATTENDED AT THIS TIME, ENDORSED: PLATELET IS READY PER BLOOD BANK. ENDORSED.
[2020-09-05 07:58] LABS: BASOPHILS % (AUTO) 0.4 % (0.0-2.0); EOSINOPHILS % (AUTO) 0.5 % (0.0-6.0); HEMATOCRIT 21 % (33-45); HEMOGLOBIN 7.2 g/dL (11.5-14.8); LYMPHOCYTES # (AUTO) 2.5 /CMM (0.8-4.8); LYMPHOCYTES % (AUTO) 33.4 % (20.0-44.0); MEAN CORPUSCULAR HGB CONC 34 g/dl (31.0-36.0); MEAN CORPUSCULAR VOLUME 90 fL (82-100); MONOCYTES # (AUTO) 0.9 /CMM (0.1-1.30); MONOCYTES % (AUTO) 12.3 % (2.0-12.0); NEUTROPHILS % (AUTO) 53.4 % (43.0-81.0); RED BLOOD CELL COUNT(AUTO) 2.37 MIL/uL (4.0-5.2); WHITE BLOOD COUNT (AUTO) 7.6 K/uL (4.3-11.0)
[2020-09-05 08:10] LABS: CALCIUM, SERUM 7.9 mg/dL (8.5-10.1); CARBON DIOXIDE 23 mmol/L (21-32); CHLORIDE 117 mmol/L (98-107); CREATININE 3.9 mg/dL (0.6-1.3); GLUCOSE 153 mg/dL (74-106); POTASSIUM 3.2 mmol/L (3.5-5.1); SODIUM SERUM 154 mmol/L (136-145)
[2020-09-05 08:13] LABS: PLATELET COUNT (AUTO) 31 /CMM (150-450)
[2020-09-05 08:16] LABS: UREA NITROGEN, BLOOD 93 mg/dL (7-18)
[2020-09-05] MEDS: AMIODARONE HCL 200 MG TABLET PO SCH ×3 (09:00→17:00)
[2020-09-05] MEDS: METOPROLOL TARTRATE 25 MG TABLET PO SCH ×2 (09:00→21:00)
[2020-09-05] MEDS: ACYCLOVIR 200 MG CAPSULE PO SCH (09:00)
--- NOTE | 2020-09-05 09:00 | NUR ---
network/telecom engineer notes patient in bed resting. patient alert, oriented x1. patient only opens eyes. midline intact patent. will continue to monitor.
[2020-09-05] MEDS ORDERED: POTASSIUM CL. PREMIX PERIPHER. 50 ML IV SCH (11:30)
--- NOTE | 2020-09-05 12:00 | NUR ---
telegraphic typewriter installer notes Mirna garcia made aware of temp of 101.4 orders obtained for blood cultures, procal. ua, sputum culture if possible. ok to give platelets. will continue to monitor.
[2020-09-05] MEDS: ACETAMINOPHEN 650 MG/SUPP.RECT RC PRN ×2 (12:40→22:38)
[2020-09-05 13:22] LABS: BAND % (MANUAL) 3 % (0.0-5.0); EOSINOPHILS % (MANUAL) 1 % (0-4); LYMPHOCYTES % (MANUAL) 29 % (16-48); METAMYELOCYTES % 3 % (0-0); MONOCYTES % (MANUAL) 9 % (0-11.0); MYELOCYTES % 1 % (0-0); NEUTROPHILS % (MANUAL) 54 (42-76)
[2020-09-05] MEDS: MICAFUNGIN SODIUM 100 MG in IV NS 0.9% 100 ML IV SCH (14:25)
--- NOTE | 2020-09-05 19:35 | NUR ---
RN NOTES PATIENT IN BED. A/O X1. AFEBRILE. NO S/SX OF RESPIRATORY DISTRESS. NC O2 2L/MIN. SA02 96-97%IV SITE CALOS MIDLINE #20 G. BUENO CATH DRAINING IN YELLOW URINE. SAFETY MEASURES MAINTAINED. BED IN LOWEST POSITION, LOCKED. SIDE RAILS UP X3. CALL LIGHT WITHIN REACH. WILL CONTINUE TO MONITOR.
[2020-09-05] MEDS: MEROPENEM 500 MG in IV NS 0.9% 50 ML IV SCH (19:57)
[2020-09-05] MEDS: IV 1/2NS 1000 ML 1,000 ML IV PRN (19:59)
[2020-09-05] MEDS ORDERED: diphenhydrAMINE HCL 50 MG/ML VIAL IV ONE (20:00)
[2020-09-05] MEDS ORDERED: ACETAMINOPHEN 325 MG TABLET PO ONE (20:00)
--- NOTE | 2020-09-05 20:19 | NUR ---
public safety telecommunicator notes transfusion completed patient tolerated well. no signs of reaction.
--- NOTE | 2020-09-05 20:22 | NUR ---
SENIOR DATA ANALYST NOTES ENDORSED CARE TO PM SHIFT RN. PATIENT IN STABLE CONDITION.
--- NOTE | 2020-09-05 22:38 | NUR ---
gave rectal acetaminophen since patient is npo. prior to transfusion.
--- NOTE | 2020-09-05 22:49 | NUR ---
telephone installer notes started plasma transfusion endorsed care to ericka avinagarnett mechanicphysical education teacher.
[2020-09-06] VITALS (13 sets, daily range): BP systolic 98–142; BP diastolic 53–83
--- NOTE | 2020-09-06 00:03 | NUR ---
RN NOTES PLASMA INFUSION FINISHED. PT VS STABLE AFEBRILE WILL CONTINUE TO MONITOR.
[2020-09-06] MEDS: MEROPENEM 500 MG in IV NS 0.9% 50 ML IV SCH ×2 (05:48→18:08)
[2020-09-06 07:08] LABS: CALCIUM, SERUM 8.2 mg/dL (8.5-10.1); CARBON DIOXIDE 23 mmol/L (21-32); CHLORIDE 119 mmol/L (98-107); CREATININE 4.3 mg/dL (0.6-1.3); GLUCOSE 152 mg/dL (74-106); MAGNESIUM 2.4 mg/dL (1.8-2.4); POTASSIUM 3.3 mmol/L (3.5-5.1)
--- NOTE | 2020-09-06 07:35 | NUR ---
HEALTH SPA MANAGER OPENING NOTES PT RECEIVED ASLEEP IN BED IN NO ACUTE SIGNS OF DISTRESS. HOB ELEVATED. A/O X1. NON-VERBAL. SEEMS COMFORTABLE AT THIS TIME WITH NO S/S OF PAIN NOTED. ON 02 VIA N/C AT 2LPM, TOLERATING WELL, BREATHING EVEN AND UNLABORED. EXTERNAL DUPLICATION SPECIALIST CURRENTLY SHOWS ST WITH HR OF 115. CALOS MIDLINE INTACT AND PATENT, IVF RUNNING ORDERED. BUENO IN PLACE WITH CLEAR YELLOW URINE OUTPUT NOTED. SAFETY MEASURES IN PLACE: BED IN LOWEST LOCKED POSITION WITH SR UP X2. CALL LIGHT W/IN REACH. WILL CONTINUE TO MONITOR PT ACCORDINGLY.
[2020-09-06 08:01] LABS: SODIUM SERUM 158 mmol/L (136-145); UREA NITROGEN, BLOOD 107 mg/dL (7-18)
[2020-09-06] MEDS: AMIODARONE HCL 200 MG TABLET PO SCH ×3 (09:00→17:00)
[2020-09-06] MEDS: METOPROLOL TARTRATE 25 MG TABLET PO SCH ×2 (09:00→21:00)
[2020-09-06] MEDS ORDERED: VANCOMYCIN 1 GM in IV D5W 250 ML IV SCH (09:00)
[2020-09-06 09:27] LABS: BASOPHILS # (AUTO) 0.1 /CMM (0.0-0.2); BASOPHILS % (AUTO) 0.8 % (0.0-2.0); EOSINOPHILS % (AUTO) 1.2 % (0.0-6.0); HEMATOCRIT 21 % (33-45); LYMPHOCYTES # (AUTO) 2.7 /CMM (0.8-4.8); LYMPHOCYTES % (AUTO) 34.5 % (20.0-44.0); MEAN CORPUSCULAR HGB CONC 33 g/dl (31.0-36.0); MEAN CORPUSCULAR VOLUME 91 fL (82-100); MONOCYTES # (AUTO) 0.9 /CMM (0.1-1.30); MONOCYTES % (AUTO) 11.7 % (2.0-12.0); NEUTROPHILS # (AUTO) 4.1 /CMM (1.8-8.9); NEUTROPHILS % (AUTO) 51.8 % (43.0-81.0); RED BLOOD CELL COUNT(AUTO) 2.29 MIL/uL (4.0-5.2); WHITE BLOOD COUNT (AUTO) 7.9 K/uL (4.3-11.0)
[2020-09-06 09:41] LABS: PLATELET COUNT (AUTO) 13 /CMM (150-450)
[2020-09-06] MEDS: IV D5W 1,000 ML IV SCH ×2 (10:02→18:09)
--- NOTE | 2020-09-06 10:42 | NUR ---
RN NOTES RECEIVED CALL FROM LAB AND WAS INFORMED THAT PT HAD CRITICAL LOW PLATELET 13, BUN [address] MCGILL MADE AWARE. ORDERS MADE AND WILL CARRY OUT.
[2020-09-06 10:51] LABS: ABG BASE EXCESS -3.3 mmol/L; ABG OXYGEN SATURATION 95.3 % (92.0-98.5); ABG PCO2 28.5 mmHg (35.0-45.0); ABG PH 7.465 (7.350-7.450); ABG PO2 79.8 mmHg (75.0-100.0); AaDO2 172.6 mmHg; COHb 0.7 % (0.5-1.5); O2Hb 94.6 % (94.0-97.0); SITE, ABG Right Radial; VENT MODE, BG 5L NASAL CANNULA
--- NOTE | 2020-09-06 11:08 | NUR ---
RN NOTES PT NOTED WITH SOB AND CONGESTED. PT REPOSITIONED AND HOB KEPT ELEVATED. 02 VIA N/C INCREASED TO 5LPM. SUCTIONED ORALLY AND OBTAINED PINKISH THICK SECRETIONS. STAT ABG'S AND CXR ORDERED AND DONE, RESULTS REPORTED TO DR ROCKWELL AND DR MCGILL. PT'S CONDITION IMPROVED. WILL CONTINUE TO MONITOR PT'S CONDITION CLOSELY.
[2020-09-06 11:36] LABS: BAND % (MANUAL) 2 % (0.0-5.0); LYMPHOCYTES % (MANUAL) 28 % (16-48); METAMYELOCYTES % 1 % (0-0); MONOCYTES % (MANUAL) 6 % (0-11.0); MYELOCYTES % 1 % (0-0); REACTIVE LYMPHOCYTES 2 % (0-0)
[2020-09-06 11:38] LABS: NEUTROPHILS % (MANUAL) 60 (42-76)
[2020-09-06] MEDS ORDERED: ACETAMINOPHEN 650 MG/SUPP.RECT RC PRN (12:00)
[2020-09-06] MEDS ORDERED: diphenhydrAMINE HCL 50 MG/ML VIAL IV ONE ×4 (12:00→22:30)
--- NOTE | 2020-09-06 13:13 | NUR ---
RN NOTES CT NEEDLE BIOPSY OF KIDNEY CANCELLED TODAY UNTIL FURTHER NOTICE PER DR HUGHES DUE TO PT'S LOW PLATELETS LEVEL.
--- NOTE | 2020-09-06 13:50 | NUR ---
RN NOTES PT NOTED WITH LOW LEVEL POTASSIUM 3.3, REPORTED TO DR MCGILL WITH ORDER NOT TO REPLACE TODAY. WILL CONTINUE TO MONITOR.
--- NOTE | 2020-09-06 14:48 | NUR ---
RN NOTES CALLED LAB AND SPOKE TO LUCY, TYPE AND SCREEN RESULTS IS NOT READY YET AT THIS TIME. WILL F/U.
[2020-09-06] MEDS ORDERED: ACETAMINOPHEN 325 MG TABLET PO ONE (15:30)
--- NOTE | 2020-09-06 17:33 | NUR ---
RN NOTES PT STARTED FIRST BAG OF TWO BAGS OF PLATELETS VIA IV ACCESS ON LEFT AC. WILL MONITOR FOR ANY ADVERSE/ALLERGIC REACTIONS.
--- NOTE | 2020-09-06 18:54 | NUR ---
FURNITURE RESTORER CLOSING NOTES PT LYING IN BED AT MODERATE HIGH BACKREST POSITION. A/O X1. NON-VERBAL. ON 02 VIA N/C AT 3LPM, BREATHING EVEN AND UNLABORED WITH NO SOB AT THIS TIME. EXTERNAL CHILD LIFE SPECIALIST CURRENTLY SHOWS NSR WITH HR OF 77 AT THIS TIME. CALOS MIDLINE INTACT AND PATENT, IST OF 2 BAGS OF PLATELETS ONGOING AT THIS TIME. PT FOR 2BAGS OF PLASMA AND 1 PRBC AFTER 2 BAGS OF PLATELETS. BUENO IN PLACE WITH CLEAR YELLOW URINE OUTPUT NOTED BUENO CARE DONE. ALL DUE NURSING CARE ANTICIPATED AND MET. SAFETY MEASURES IN PLACE: BED IN LOWEST LOCKED POSITION WITH SR UP X2. CALL LIGHT W/IN REACH. WILL ENDORSE ELVIRA TO NIGHT NURSE.
--- NOTE | 2020-09-06 22:00 | NUR ---
MS/TELE//RN FFP UNIT 1 STARTED. WILL MONITOR PER POLICY
[2020-09-07] VITALS (19 sets, daily range): BP systolic 106–135; BP diastolic 52–79
--- NOTE | 2020-09-07 00:38 | NUR ---
MS/TELE/RN PLASMA UNIT #2 STARTED. WILL MONITOR PER PROTOCOL.
--- NOTE | 2020-09-07 00:41 | NUR ---
MS/TELE/RN SON, NICKI RIZO, WAS AT BEDSIDE (NURSING GEOSPATIAL PROGRAM MANAGEMENT OFFICER APPROVED THE VISIT), WANTED TO TALK TO MD, ADVISED TO CALL IN A.M. SON STAYED FOR ABOUT 30 MINUTES. UNIT # 2 OF PLATELET WAS NOT ADMINISTERED IT WAS NOT AVAILABLE PER BLOOD BANK.
[2020-09-07] MEDS: IV D5W 1,000 ML IV SCH (03:50)
[2020-09-07 05:14] LABS: BASOPHILS # (AUTO) 0.1 /CMM (0.0-0.2); BASOPHILS % (AUTO) 1.9 % (0.0-2.0); LYMPHOCYTES # (AUTO) 2.3 /CMM (0.8-4.8); LYMPHOCYTES % (AUTO) 34.8 % (20.0-44.0); MEAN CORPUSCULAR HGB CONC 34 g/dl (31.0-36.0); MEAN CORPUSCULAR VOLUME 91 fL (82-100); MONOCYTES # (AUTO) 0.9 /CMM (0.1-1.30); MONOCYTES % (AUTO) 13.1 % (2.0-12.0); NEUTROPHILS # (AUTO) 3.2 /CMM (1.8-8.9); NEUTROPHILS % (AUTO) 48.2 % (43.0-81.0); RED BLOOD CELL COUNT(AUTO) 2.18 MIL/uL (4.0-5.2); WHITE BLOOD COUNT (AUTO) 6.7 K/uL (4.3-11.0)
[2020-09-07 05:20] LABS: HEMATOCRIT 20 % (33-45); HEMOGLOBIN 6.7 g/dL (11.5-14.8)
[2020-09-07 05:21] LABS: PLATELET COUNT (AUTO) 28 /CMM (150-450)
[2020-09-07 05:43] LABS: CALCIUM, SERUM 8.4 mg/dL (8.5-10.1); CARBON DIOXIDE 25 mmol/L (21-32); CHLORIDE 118 mmol/L (98-107); CREATININE 4.4 mg/dL (0.6-1.3); GLUCOSE 161 mg/dL (74-106)
[2020-09-07 05:44] LABS: SODIUM SERUM 157 mmol/L (136-145)
[2020-09-07 05:45] LABS: UREA NITROGEN, BLOOD 100 mg/dL (7-18)
[2020-09-07 05:55] LABS: BAND % (MANUAL) 5 % (0.0-5.0); EOSINOPHILS % (MANUAL) 2 % (0-4); LYMPHOCYTES % (MANUAL) 38 % (16-48); MONOCYTES % (MANUAL) 13 % (0-11.0); NEUTROPHILS % (MANUAL) 42 (42-76)
--- NOTE | 2020-09-07 07:08 | NUR ---
MS/TELE/RN PLATELET, 28, HG6.7, NOTIFIED DR. CONSTANCE BARAHONA, NO ORDER WAS RECEIVED.
--- NOTE | 2020-09-07 07:43 | NUR ---
MS/TELE/RN PATIENT IS SLEEPING, APPEAR COMFORTABLE, NO DISTRESS NOTED, BLOOD TRANSFUSION ONGOING, UNABLE TO ADMINISTER ANTIBIOTIC AT 0600 THE BLOOD WAS INFUSING, ENDORSED TO NEXT RN. ALL NEEDS ATTENDED AT THIS TIME,ENDORSED.
[2020-09-07] MEDS: AMIODARONE HCL 200 MG TABLET PO SCH ×3 (08:13→16:37)
[2020-09-07] MEDS: METOPROLOL TARTRATE 25 MG TABLET PO SCH ×2 (08:15→21:00)
[2020-09-07] MEDS ORDERED: IV D5W 1,000 ML IV PRN (08:30)
[2020-09-07] MEDS ORDERED: ACETAMINOPHEN 325 MG TABLET PO ONE (09:00)
[2020-09-07] MEDS ORDERED: diphenhydrAMINE HCL 50 MG/ML VIAL IV ONE (09:00)
--- NOTE | 2020-09-07 09:00 | NUR ---
Tele/RN - Pre-medication prior to blood transfusion Benadryl and Tylenol ordered at 09:00 was not given due to blood transfusion ongoing since 06:00. Patient was pre-medicated already at that time.
[2020-09-07] MEDS: MEROPENEM 500 MG in IV NS 0.9% 50 ML IV SCH ×2 (09:33→17:31)
--- NOTE | 2020-09-07 10:09 | NUR ---
PER DR SINGH PT LABS NOT WITHIN LIMITS FOR BIOPSY, PLATLETS / INR, BC HULL STATES PT IS HAVING TRANSFUSION OF PACKED RBC / PLATELETS/ PALSMA EXAM ON HOLD AT THIS TIME PK
[2020-09-07 13:57] LABS: BASOPHILS # (AUTO) 0.1 /CMM (0.0-0.2); BASOPHILS % (AUTO) 0.9 % (0.0-2.0); EOSINOPHILS % (AUTO) 2.1 % (0.0-6.0); HEMATOCRIT 27 % (33-45); LYMPHOCYTES # (AUTO) 2.2 /CMM (0.8-4.8); LYMPHOCYTES % (AUTO) 33.5 % (20.0-44.0); MEAN CORPUSCULAR HGB CONC 33 g/dl (31.0-36.0); MEAN CORPUSCULAR VOLUME 92 fL (82-100); MONOCYTES # (AUTO) 0.7 /CMM (0.1-1.30); MONOCYTES % (AUTO) 10.2 % (2.0-12.0); NEUTROPHILS # (AUTO) 3.5 /CMM (1.8-8.9); NEUTROPHILS % (AUTO) 53.3 % (43.0-81.0); RED BLOOD CELL COUNT(AUTO) 2.94 MIL/uL (4.0-5.2); WHITE BLOOD COUNT (AUTO) 6.5 K/uL (4.3-11.0)
[2020-09-07 15:16] LABS: PLATELET COUNT (AUTO) 22 /CMM (150-450)
--- NOTE | 2020-09-07 18:25 | NUR ---
Tele/RN - End of shift summary Patient lethargic, opens eyes to touch, comfortable on 3lpm via NC, no acute distress seen, currently NPO, tele shows SR with PACs, A.Fib and SVT at times. Administered 1 unit PRBC and 1 unit platelets this shift. Looney catheter in place for accurate intake and output monitoring. Continue IVF and antibiotics for now, monitor for signs of bleeding. Plan for HD catheter placement once platelet count is more stable. Yunior (son) updated on pt's condition.
--- NOTE | 2020-09-07 19:30 | NUR ---
EDUCATION PROFESSOR NOTE: PATIENT RESTING IN BED, NO ACUTE DISTRESS NOTED. BREATHING EVEN AND UNLABORED, NO SOB NOTE. MIDLINE TO CALOS IN PLACE, INFUSING D5NS AT 125ML/HR. BUENO CATHETER IN PLACE, EMPTY AT THIS TIME. BED LOCKED AND IN LOWEST POSITION, CALL LIGHT IN REACH. WILL CONTINUE TO MONITOR.
[2020-09-08] VITALS (8 sets, daily range): BP systolic 107–136; BP diastolic 58–71
--- NOTE | 2020-09-08 00:15 | NUR ---
GRAY MIXING OPERATOR NOTE: PATIENT SON DROPPED BY TO SEE PATIENT AND PROVIDE A COPY OF PATIENT'S ADVANCE DIRECTIVE THAT SHE WANTED TO BE DNR/DNI. INFORMED ENTERPRISE SOFTWARE DEVELOPER MD THAT WE RECEIVED COPY OF ADVANCE DIRECTIVE AND CODE STATUS CHANGED TO DNR/DNR. WILL CONTINUE TO MONITOR THROUGHOUT SHIFT.
--- NOTE | 2020-09-08 06:10 | NUR ---
GLASSWARE ENGRAVER NOTE: PATIENT RESTING IN BED, NO ACUTE DISTRESS NOTED. BREATHING EVEN AND UNLABORED, NO SOB NOTE. MIDLINE TO CALOS IN PLACE, INFUSING D5NS AT 125ML/HR. TELE READINGSR 90'S. BUENO CATHETER IN PLACE. BED LOCKED AND IN LOWEST POSITION, CALL LIGHT IN REACH. WILL ENDORSE TO DAY NURSE TO CONTINUE WITH PLAN OF CARE.
[2020-09-08 06:11] LABS: BASOPHILS % (AUTO) 0.7 % (0.0-2.0); EOSINOPHILS % (AUTO) 2.3 % (0.0-6.0); HEMATOCRIT 26 % (33-45); HEMOGLOBIN 8.8 g/dL (11.5-14.8); LYMPHOCYTES # (AUTO) 2.1 /CMM (0.8-4.8); LYMPHOCYTES % (AUTO) 34.3 % (20.0-44.0); MEAN CORPUSCULAR HGB CONC 34 g/dl (31.0-36.0); MEAN CORPUSCULAR VOLUME 91 fL (82-100); MONOCYTES # (AUTO) 0.9 /CMM (0.1-1.30); MONOCYTES % (AUTO) 14.2 % (2.0-12.0); NEUTROPHILS % (AUTO) 48.5 % (43.0-81.0); WHITE BLOOD COUNT (AUTO) 6.1 K/uL (4.3-11.0)
[2020-09-08] MEDS: MEROPENEM 500 MG in IV NS 0.9% 50 ML IV SCH ×2 (06:13→18:41)
[2020-09-08 06:16] LABS: PLATELET COUNT (AUTO) 35 /CMM (150-450)
--- NOTE | 2020-09-08 06:30 | NUR ---
BUTTERMILK DRIER OPERATOR NOTE: RECEIVED CALL FROM LAB FOR CRITICAL RESULT. PLATELET COUNT 35, TRENDING UP FROM YESTERDAY. WITH STATING ORDER TO TRANSFUSE 1 UNIT OF PLATELET IF LESS THAN 10. WILL ENDORSE TO DAY NURSE.
[2020-09-08 07:38] LABS: CALCIUM, SERUM 8.4 mg/dL (8.5-10.1); CARBON DIOXIDE 23 mmol/L (21-32); CHLORIDE 116 mmol/L (98-107); CREATININE 4.7 mg/dL (0.6-1.3); GLUCOSE 146 mg/dL (74-106); POTASSIUM 3.3 mmol/L (3.5-5.1); SODIUM SERUM 153 mmol/L (136-145)
[2020-09-08 07:39] LABS: UREA NITROGEN, BLOOD 99 mg/dL (7-18)
[2020-09-08] MEDS: AMIODARONE HCL 200 MG TABLET PO SCH ×3 (09:00→17:00)
[2020-09-08] MEDS: METOPROLOL TARTRATE 25 MG TABLET PO SCH ×2 (09:00→21:00)
[2020-09-08] MEDS: IV D5W 1,000 ML IV SCH ×2 (10:12→18:41)
[2020-09-08 10:43] LABS: BAND % (MANUAL) 1 % (0.0-5.0); EOSINOPHILS % (MANUAL) 2 % (0-4); LYMPHOCYTES % (MANUAL) 32 % (16-48); METAMYELOCYTES % 1 % (0-0); MONOCYTES % (MANUAL) 9 % (0-11.0); MYELOCYTES % 4 % (0-0); NEUTROPHILS % (MANUAL) 51 (42-76)
--- NOTE | 2020-09-08 13:00 | NUR ---
DATABASE DESIGNER NOTES ORDER CLARIFIED OF NG TUBE INSERTION. GIVE 1 UNIT OF PLTS AND 1 UNITE OF FFP, RECHECK PLTS AFTER 1 UNIT OF PLTS AND IF ABOVE 50 CAN INSERT NG TUBE.
--- NOTE | 2020-09-08 19:17 | NUR ---
PAINT GRINDER STONE MILL NOTES PATIENT IN BED RESTING NO SOB OR ACUTE DISTRESS NOTED. ALL DUE MEDICATIONS ADMINISTERED. ALL NEEDS MET. SAFETY MEASURES IN PLACE. ENDORSED CARE TO PM SHIFT.
--- NOTE | 2020-09-08 23:35 | NUR ---
RN NOTES FFP STARTED, V/S STABLE, WILL MONITOR THE PT.
--- NOTE | 2020-09-08 23:50 | NUR ---
RN NOTES PT. DOESN'T HAVE ANY REACTION FROM FFP.. WILL CONTINUE TO MONITOR
[2020-09-09] VITALS (8 sets, daily range): BP systolic 121–144; BP diastolic 58–80
--- NOTE | 2020-09-09 02:00 | NUR ---
RN NOTES PLATELET STARTED, V/S STABLE. WILL CONTINUE TO MONITOR
--- NOTE | 2020-09-09 02:15 | NUR ---
RN NOTES NO REACTION FROM PLATELETS , WILL CONTINUE TO MONITOR
--- NOTE | 2020-09-09 03:00 | NUR ---
RN NOTES PLATELET FINISHED , V/S STABLE
[2020-09-09 05:09] LABS: BASOPHILS # (AUTO) 0.1 /CMM (0.0-0.2); BASOPHILS % (AUTO) 1.3 % (0.0-2.0); EOSINOPHILS % (AUTO) 1.8 % (0.0-6.0); HEMATOCRIT 25 % (33-45); HEMOGLOBIN 8.5 g/dL (11.5-14.8); LYMPHOCYTES # (AUTO) 2.2 /CMM (0.8-4.8); LYMPHOCYTES % (AUTO) 36.8 % (20.0-44.0); MEAN CORPUSCULAR HGB CONC 34 g/dl (31.0-36.0); MEAN CORPUSCULAR VOLUME 91 fL (82-100); MONOCYTES # (AUTO) 0.7 /CMM (0.1-1.30); MONOCYTES % (AUTO) 12.3 % (2.0-12.0); NEUTROPHILS # (AUTO) 2.9 /CMM (1.8-8.9); NEUTROPHILS % (AUTO) 47.8 % (43.0-81.0); RED BLOOD CELL COUNT(AUTO) 2.76 MIL/uL (4.0-5.2); WHITE BLOOD COUNT (AUTO) 6.1 K/uL (4.3-11.0)
[2020-09-09 05:11] LABS: PLATELET COUNT (AUTO) 52 /CMM (150-450)
[2020-09-09 05:24] LABS: CALCIUM, SERUM 8.9 mg/dL (8.5-10.1); CARBON DIOXIDE 25 mmol/L (21-32); CHLORIDE 113 mmol/L (98-107); GLUCOSE 143 mg/dL (74-106); POTASSIUM 3.4 mmol/L (3.5-5.1); SODIUM SERUM 150 mmol/L (136-145)
--- NOTE | 2020-09-09 05:35 | NUR ---
RN NOTES PT HEART RATE WENT TO 170. EKG WAS DONE AND INFORMED KARLIE=DNP ABOUT PT EKG, A-FIB WITH RVR, KARLIE, ORDERED IF METOPROLOL 5MG IVP DOESN'T WORK , GIVE CARDIZEM D MG IVP, ORDER NOTED AND CARRIED OUT
[2020-09-09 05:45] LABS: UREA NITROGEN, BLOOD 100 mg/dL (7-18)
--- NOTE | 2020-09-09 05:45 | NUR ---
RN NOTES PT HEART RATE IS 170- METOPROLOL 5 MG IVP GIVEN ORDERED, WILL MONITOR
[2020-09-09] MEDS ORDERED: DILTIAZEM HCL 25 MG IV IV ONE (06:30)
--- NOTE | 2020-09-09 07:09 | NUR ---
RN NOTES HEART RATE IS 100, MORNING CARE RENDERED , [id number], PT. NEEDS ATTENDED
--- NOTE | 2020-09-09 08:00 | NUR ---
FELT MACHINE MECHANIC NOTES MD AWARE OF ALL ABNORMAL LABS. NO NEW ORDERS.
--- NOTE | 2020-09-09 08:08 | NUR ---
pulley maintainer notes Patient seen and evaluated by dr. Kang. Noted patient with rapid breathing. He will discuss patients plan with Dr. Sellers and start patient on HD since son agreed will continue to monitor.
[2020-09-09] MEDS: POTASSIUM CL. PREMIX PERIPHER. 50 ML IV SCH ×4 (08:41→13:21)
[2020-09-09] MEDS: METOPROLOL TARTRATE 25 MG TABLET PO SCH ×2 (09:00→21:00)
[2020-09-09] MEDS: AMIODARONE HCL 200 MG TABLET PO SCH ×3 (09:00→17:00)
[2020-09-09 10:04] LABS: D-DIMER 14.61 mg/L(FEU (0.17-0.50)
--- NOTE | 2020-09-09 10:49 | NUR ---
PT UNSTABLE FOR NEEDLE BIOPSY PER BC DENNEY.
--- NOTE | 2020-09-09 12:00 | NUR ---
REGIONAL EHS MANAGER NOTES PATIENT SEEN BY BRAYDON MURPHY, ORDERS TO CONTINUE TO MONITOR. NO TRANSFUSIONS NEEDED. INSERT NG TUBE IF POSSIBLE.
[2020-09-09] MEDS: IV D5W 1,000 ML IV SCH ×2 (13:21→18:42)
--- NOTE | 2020-09-09 14:30 | NUR ---
ASSOCIATE DIRECTOR OF BIOSTATISTICS NOTES HD CATH PLACED BY DR. CONSTANCE BARAHONA. PATIENT TOLERATED PROCEDURE WELL. WILL CONTINUE TO MONITOR FOR BLEEDING.
--- NOTE | 2020-09-09 15:52 | NUR ---
INTEGRITY DIRECTOR NOTES ATTEMPTED TO INSERT NG TUBE UNABLE TO . PATIENT BECAME TACHYCARDIC. WILL ATTEMPT AGAIN LATER.
--- NOTE | 2020-09-09 18:18 | NUR ---
COATING MANAGER NOTES CONFIRMED WITH HD NURSE 1ST HD WILL BE TOMORROW.
--- NOTE | 2020-09-09 19:26 | NUR ---
DYE HOUSE WHEEL OPERATOR NOTES PATIENT IN BED RESTING NOTED TO BE TACHYPNEIC MD AWARE. PATIENT SCHEDULED FOR HD TODAY. ALL DUE MEDICATIONS ADMINISTERED. ALL NEEDS MET. WILL ENDORSE CARE TO PM SHIFT.
[2020-09-09] MEDS ORDERED: TPN/PPN PER PHARMACY IV PRN (20:30)
--- NOTE | 2020-09-09 21:30 | NUR ---
RN NOTES HEMODIALYSIS STARTED, WILL CONTINUE TO MONITOR
[2020-09-09] MEDS ORDERED: ALBUMIN 25% 25 GM in PREMIX 1 EA IV PRN (22:00)
[2020-09-09] MEDS ORDERED: ALBUMIN 25% 50 ML IV ONE (22:17)
--- NOTE | 2020-09-09 23:35 | NUR ---
RN NOTES HD WAS DONE AND NOTICED PT IS TACHYPNEIC, AND NOTICED PT IS CONGESTED.. PUT PT ON NO REBREATHER AND RT CAME AND SUCTIONED THE PATIENT.. WILL CONTINUE TO MONITOR
[2020-09-10 00:34] VITALS: BP 111/64
[2020-09-10 00:39] VITALS: BP 105/59
[2020-09-10 04:07] VITALS: BP 125/66
[2020-09-10 07:21] LABS: CARBON DIOXIDE 27 mmol/L (21-32); CHLORIDE 105 mmol/L (98-107); CREATININE 3.5 mg/dL (0.6-1.3); GLUCOSE 125 mg/dL (74-106); MAGNESIUM 1.8 mg/dL (1.8-2.4); PHOSPHORUS 5.3 mg/dL (2.5-4.9); POTASSIUM 4.2 mmol/L (3.5-5.1); SODIUM SERUM 142 mmol/L (136-145); UREA NITROGEN, BLOOD 67 mg/dL (7-18)
[2020-09-10 08:09] LABS: D-DIMER 19.92 mg/L(FEU (0.17-0.50)
[2020-09-10 08:28] VITALS: BP 110/50
[2020-09-10] MEDS: AMIODARONE HCL 200 MG TABLET PO SCH ×2 (08:56→13:00)
[2020-09-10] MEDS: METOPROLOL TARTRATE 25 MG TABLET PO SCH (08:56)
[2020-09-10 08:59] LABS: BASOPHILS % (AUTO) 0.7 % (0.0-2.0); EOSINOPHILS % (AUTO) 1.7 % (0.0-6.0); LYMPHOCYTES % (AUTO) 37.1 % (20.0-44.0); MEAN CORPUSCULAR HGB CONC 34 g/dl (31.0-36.0); MEAN CORPUSCULAR VOLUME 90 fL (82-100); MONOCYTES # (AUTO) 0.6 /CMM (0.1-1.30); MONOCYTES % (AUTO) 11.7 % (2.0-12.0); NEUTROPHILS # (AUTO) 2.7 /CMM (1.8-8.9); NEUTROPHILS % (AUTO) 48.8 % (43.0-81.0); RED BLOOD CELL COUNT(AUTO) 2.18 MIL/uL (4.0-5.2); WHITE BLOOD COUNT (AUTO) 5.5 K/uL (4.3-11.0)
[2020-09-10 09:34] LABS: HEMATOCRIT 20 % (33-45); HEMOGLOBIN 6.6 g/dL (11.5-14.8); PLATELET COUNT (AUTO) 21 /CMM (150-450)
[2020-09-10] MEDS ORDERED: INSULIN REGULAR, HUMAN 100 UNIT/ML 3 ML VIAL SQ PRN (10:30)
[2020-09-10] MEDS ORDERED: DEXTROSE 50%-WATER 50 ML DISP.SYRIN IV PRN (10:30)
[2020-09-10 10:59] LABS: BAND % (MANUAL) 1 % (0.0-5.0); EOSINOPHILS % (MANUAL) 3 % (0-4); LYMPHOCYTES % (MANUAL) 35 % (16-48); METAMYELOCYTES % 1 % (0-0); MONOCYTES % (MANUAL) 10 % (0-11.0); NEUTROPHILS % (MANUAL) 50 (42-76)
[2020-09-10] MEDS ORDERED: ACETAMINOPHEN 325 MG TABLET MC ONE (11:00)
[2020-09-10] MEDS ORDERED: diphenhydrAMINE HCL 50 MG/ML VIAL IV ONE (11:00)
--- NOTE | 2020-09-10 11:55 | NUR ---
RN OPENING NOTE A/O X1, PT IS RESPONSIVE TO LIGHT TOUCH. PT IS ON NONREBREATHER MASK 15L O2 WITH O2 SAT OF 98%. SOB PRESENT. PT HAS A BP OF 110/50, PULSE OF 96. BUENO CATH IN PLACE. ALVARO URINE. BRUISES ARE PRESENT ON THE R KNEE. SAFETY MEASURES IN PLACE. LOWERED BED. SIDE RAILS RAISED. CALL LIGHT WITHIN REACH. WILL CONTINUE TO MONITOR.
[2020-09-10] MEDS ORDERED: BLOOD SUGAR DIAGNOSTIC 1 EACH STRIP IN SCH (12:00)
[2020-09-10] MEDS ORDERED: ACETAMINOPHEN 650 MG/SUPP.RECT RC ONE (12:00)
[2020-09-10 12:14] LABS: ABG BASE EXCESS 3.6 mmol/L; ABG OXYGEN SATURATION 97.8 % (92.0-98.5); ABG PCO2 27.8 mmHg (35.0-45.0); ABG PO2 143.4 mmHg (75.0-100.0); AaDO2 397.8 mmHg; COHb 2.3 % (0.5-1.5); MetHb 0.4 % (0.0-1.5); O2Hb 95.2 % (94.0-97.0); SITE, ABG Right Radial; VENT MODE, BG NRB
[2020-09-10 12:38] VITALS: BP 113/62
[2020-09-10 13:00] VITALS: BP 113/62
[2020-09-10] MEDS ORDERED: IV D5W 1,000 ML IV SCH (14:00)
[2020-09-10] MEDS ORDERED: TPN BAG #1 IV SCH ×2 (14:00)
--- NOTE | 2020-09-10 14:00 | NUR ---
PT IS HAVING HEMODIALYSIS PROCEDURE AND THE HD RN REPORTED THAT THE PT BECAME NON RESPONSIVE.CHECKED ON THE PT, PT IS VERY PALE,NON RESPONSIVE TO VERBAL AND TACTILE STIMULI, NO SPONTANEOUS RESPIRATION NOTED. NO PULSE NOTED. PUPILS NON REACTIVE TO LIGHT.SKIN COLD TO TOUCH AND MOTTLED. PAGED DR BARNETT.
--- NOTE | 2020-09-10 14:04 | NUR ---
PT AT 1404.
--- NOTE | 2020-09-10 15:00 | NUR ---
MS/RN Patient . 1404 - Time of 1408 - Dr Bangura notified of patient's 1410 - Family notified, spoke with son Yunior 1415 - Dr Romero's office called to inform that patient had 1425 - [facility] called, patient declined for organ and tissue donation. Case #CC [id number] - Nursing cotton gin yard supervisor and admitting department made aware.
== END 2020-09-10 15:36 | disposition expired | DRG 823 ==
LOC: ER 11:06 → TRANSITION 17:27 → TELE 08-27 10:45 → ICU 08-31 13:41 → TELE 09-04 11:49
PROVIDERS: ADMIT Student in an Organized Health Care Education/Training Program; ATTEND Internal Medicine
PROC: 30233N1 Transfusion of Nonautologous Red Blood Cells into Peripheral Vein, Percutaneous Approach (ICD-10-PCS; 2020-08-28)
PROC: 30233L1 Transfusion of Nonautologous Fresh Plasma into Peripheral Vein, Percutaneous Approach (ICD-10-PCS; 2020-08-29)
PROC: 30233R1 Transfusion of Nonautologous Platelets into Peripheral Vein, Percutaneous Approach (ICD-10-PCS; 2020-08-29)
PROC: 0QB30ZX Excision of Left Pelvic Bone, Open Approach, Diagnostic (ICD-10-PCS; principal; 2020-08-30)
PROC: 06HY33Z Insertion of Infusion Device into Lower Vein, Percutaneous Approach (ICD-10-PCS; 2020-09-09)
PROC: 5A1D70Z Performance of Urinary Filtration, Intermittent, Less than 6 Hours Per Day (ICD-10-PCS; 2020-09-09)
DX: C90.00 Multiple myeloma not having achieved remission (principal); J69.0 Pneumonitis due to inhalation of food and vomit; N17.0 Acute kidney failure with tubular necrosis; G93.41 Metabolic encephalopathy; E43 Unspecified severe protein-calorie malnutrition; J96.01 Acute respiratory failure with hypoxia; I21.4 Non-ST elevation (NSTEMI) myocardial infarction; D65 Disseminated intravascular coagulation [defibrination syndrome]; D68.9 Coagulation defect, unspecified; R64 Cachexia; I42.9 Cardiomyopathy, unspecified; E87.0 Hyperosmolality and hypernatremia; E87.2 Acidosis; J91.0 Malignant pleural effusion; I47.1 Supraventricular tachycardia; I13.0 Hypertensive heart and chronic kidney disease with heart failure and stage 1 through stage 4 chronic kidney disease, or unspecified chronic kidney disease; N25.81 Secondary hyperparathyroidism of renal origin; D63.8 Anemia in other chronic diseases classified elsewhere; Z20.822 Contact with and (suspected) exposure to COVID-19; F03.90 Unspecified dementia, unspecified severity, without behavioral disturbance, psychotic disturbance, mood disturbance, and anxiety; I50.9 Heart failure, unspecified; Z79.82 Long term (current) use of aspirin; Z79.899 Other long term (current) drug therapy; Y95 Nosocomial condition; I25.2 Old myocardial infarction; I25.10 Atherosclerotic heart disease of native coronary artery without angina pectoris; E87.6 Hypokalemia; N18.9 Chronic kidney disease, unspecified; R62.7 Adult failure to thrive; F09 Unspecified mental disorder due to known physiological condition; R74.01 Elevation of levels of liver transaminase levels
CPT/HCPCS: 31720; 36410; 36415; 36600; 71045-TC; 76604-TC; 80048-TC; 80053-TC; 80076-TC; 80202-TC; 81001; 82330; 82550-TC; 82553; 82570-TC; 82962-TC; 83605-TC; 83690-TC; 83735-TC; 83970; 84100-TC; 84155; 84155-TC; 84165; 84300-TC; 84439-TC; 84443-TC; 84478-TC; 84484-TC; 84550-TC; 85025-TC; 85385-TC; 85396; 85610-TC; 85730-TC; 86850-TC; 87040-TC; 87070-TC; 87075-TC; 87081-TC; 87086-TC; 87102-TC; 89051-TC; 90935-TC; 92526; 92611-TC; 93307-TC; 94799-TC; 97112-TC; 97116-TC; 97530-TC; A4216; A6403; C1750; C1751; C9113; C9803; G0378; J0153; J0692; J0696; J1170; J1200; J1815; J2060; J2185; J2248; J2370; J2405; J2543; J3370; J3430; J3475; J3480; J3490; J7030; J7040; J7042; J7050; J7060; J7070; P9016-BL; P9017-BL; P9034-BL; P9047; U0003